=== PATIENT | female | born 1955 | race Two or more races ===

== ENCOUNTER 2022-10-28 16:05 | Inpatient (IN) | payer MEDICARE, OTHER ==
[~2022-10-28] VITALS: Ht 157.5 cm; Wt 58.1 kg
--- NOTE | 2022-10-28 16:10 | NUR ---
BIB FAMILY PT HAS BEEN SCARED, ANXIOUS, AND TRYING TO RUN AWAY STATING SHEWANTS TO AND RUN IN FRONT OF THE CAR X5DAYS, HX OF BIPOLAR
--- NOTE | 2022-10-28 16:57 | NUR ---
Covid 19 swab collected and sent to lab.
--- NOTE | 2022-10-28 16:58 | NUR ---
Unable to provide urine sample at the moment.
[2022-10-28 17:21] LABS: BASOPHILS # (AUTO) 0.1 K/uL (0.0-0.2); BASOPHILS % (AUTO) 0.5 % (0.0-2.0); EOSINOPHILS % (AUTO) 0.6 % (0.0-6.0); HEMATOCRIT 28 % (33-45); LYMPHOCYTES # (AUTO) 1.9 K/uL (0.8-4.8); LYMPHOCYTES % (AUTO) 16.2 % (20.0-44.0); MEAN CORPUSCULAR HGB CONC 29 g/dl (31.0-36.0); MEAN CORPUSCULAR VOLUME 65 fL (82-100); MONOCYTES # (AUTO) 0.9 K/uL (0.1-1.30); MONOCYTES % (AUTO) 7.3 % (2.0-12.0); NEUTROPHILS # (AUTO) 8.9 K/uL (1.8-8.9); NEUTROPHILS % (AUTO) 75.4 % (43.0-81.0); PLATELET COUNT (AUTO) 685 K/uL (150-450); RED BLOOD CELL COUNT(AUTO) 4.27 MIL/uL (4.0-5.2); WHITE BLOOD COUNT (AUTO) 11.9 K/uL (4.3-11.0)
--- NOTE | 2022-10-28 17:23 | NUR ---
Urine sample collected and sent to lab.
[2022-10-28 17:36] LABS: ALANINE AMINOTRANSFERASE 19 U/L (12-78); ALKALINE PHOSPHATASE 93 U/L (46-116); ASPARTATE AMINOTRANSFERASE 13 U/L (15-37); BILIRUBIN,DIRECT 0.1 mg/dL (0.0-0.2); BILIRUBIN,TOTAL 0.3 mg/dL (0.2-1.0); CALCIUM, SERUM 10.7 mg/dL (8.5-10.1); CARBON DIOXIDE 24 mmol/L (21-32); CHLORIDE 104 mmol/L (98-107); CREATININE 0.7 mg/dL (0.6-1.3); GLUCOSE 115 mg/dL (74-106); POTASSIUM 3.9 mmol/L (3.5-5.1); SODIUM SERUM 136 mmol/L (136-145); TOTAL PROTEIN, SERUM 7.8 g/dL (6.4-8.2); UREA NITROGEN, BLOOD 19 mg/dL (7-18)
[2022-10-28 17:42] LABS: ACETAMINOPHEN < 10 ug/ml (10-30); ALCOHOL, BLOOD < 3 mg/dL (0-0)
[2022-10-28 18:05] LABS: BILIRUBIN,URINE NEGATIVE (NEGATIVE); COLOR,URINE YELLOW (YELLOW); LEUKOCYTE ESTERASE ,URINE 3+ (NEGATIVE); NITRITE, URINE NEGATIVE (NEGATIVE); PROTEIN,URINE NEGATIVE (NEGATIVE); UGLUCOSE NEGATIVE (NEGATIVE); UROBILINOGEN,URINE 0.2 EU/dL (0.2)
--- NOTE | 2022-10-28 18:32 | NUR ---
ELMIRA LEONE CALLED FOR PSYCH EVAL. ETA [id number].
[2022-10-28 20:30] LABS: BACTERIA,URINE Few /HPF (None Seen); SQUAMOUS EPITHELIAL CELL,UR Moderate /HPF (None Seen); WBC,URINE 21-50 /HPF (0-3)
[2022-10-28] MEDS ORDERED: DEXTROSE 50%-WATER 50 ML DISP.SYRIN IV PRN (20:30)
--- NOTE | 2022-10-28 20:56 | NUR ---
REPORT GIVEN TO VERA LEONE FOR MARY ELLEN
[2022-10-28 21:05] VITALS: BP 156/82
--- NOTE | 2022-10-28 21:05 | NUR ---
BUSINESS MACHINES TEACHER NOTE: ADMITTED A 67-Y/O, FEMALE, FROM [facility]-, INITIALLY PT CAME FROM HOME. ADMITTED ON A 5150 FOR DTS/GD. PER HOLD, PATIENT ADMITTED DUE TO NOT SLEEPING AND TRY TO RUN AWAY FROM HOME WITH INTENTION TO HIT BY CAR AND VERBALIZING TO HER THAT SHE WANT TO , FEELING ANXIOUS, RESTLESS, HAS SHORT ATTENTION SPAN AND HAS PERIOD OF CONFUSION. UPON FACE TO FACE EVALUATION, PATIENT IS ALERT AND ORIENTED X3-4, APPEARS TO BE DEPRESSED, GUARDED, FLAT AFFECT, COOPERATIVE TO CARE. PATIENT DENIES SI/HI/AVH AT THIS TIME. SKIN ASSESSMENT DONE. ALL BELONGINGS WERE CHECKED FOR CONTRABAND AND WAS KEPT IN PT'S ROOM LOCKER. PT WAS ADVISED OF HER HOLD. PATIENT'S RIGHTS WERE DISCUSSED AND BOOKLET WAS GIVEN. CONTACTED DR. CARY AND HOSPITALIST SELENA HOBBS AND INFORMED THEM OF THE ADMISSION. BED IN LOW AND LOCKED POSITION. SAFETY PRECAUTIONS MAINTAINED. WILL CONTINUE TO MONITOR Q15 MINS FOR MOOD, SAFETY AND BEHAVIOR. PATIENT'S SON JEAN-PAUL NOTIFIED OF PT'S ADMISSION AND WAS APPRECIATIVE OF THE CALL.
[2022-10-28] MEDS ORDERED: OXYB5TAB16 PO (21:11)
[2022-10-28] MEDS ORDERED: GLIM1TAB18 PO (21:11)
[2022-10-28] MEDS ORDERED: ASPI-1169 PO (21:11)
[2022-10-28] MEDS ORDERED: PANT40TA2 PO (21:11)
[2022-10-28] MEDS ORDERED: LITH300T3 PO (21:11)
[2022-10-28] MEDS ORDERED: ATOR80TA PO (21:11)
[2022-10-28] MEDS ORDERED: AMLO-212 PO (21:11)
[2022-10-28] MEDS ORDERED: SITA100T PO (21:11)
[2022-10-28] MEDS: BLOOD SUGAR DIAGNOSTIC 1 EACH STRIP IN SCH (21:58)
[2022-10-28] MEDS ORDERED: TEMAZEPAM 7.5 MG CAPSULE PO PRN (22:00)
[2022-10-28] MEDS ORDERED: BLOOD SUGAR DIAGNOSTIC 1 EACH STRIP IN ONE (22:00)
[2022-10-28] MEDS ORDERED: MAG HYDROX/AL HYDROX/SIMETH 30 ML UDC PO PRN (22:00)
[2022-10-28] MEDS: INSULIN REGULAR, HUMAN 100 UNIT/ML 3 ML VIAL SQ PRN (22:34)
[2022-10-28 22:52] LABS: EOSINOPHILS % (MANUAL) 1 % (0-4); LYMPHOCYTES % (MANUAL) 26 % (16-48); MONOCYTES % (MANUAL) 4 % (0-11.0); NEUTROPHILS % (MANUAL) 69 (42-76)
[2022-10-29] MEDS: clonazePAM 0.5 MG TABLET PO PRN ×2 (01:15→12:34)
[2022-10-29 07:52] LABS: CREATININE 0.7 mg/dL (0.6-1.3)
[2022-10-29 08:00] VITALS: BP 163/82
[2022-10-29] MEDS: INSULIN REGULAR, HUMAN 100 UNIT/ML 3 ML VIAL SQ PRN ×4 (08:03→22:39)
[2022-10-29] MEDS: BLOOD SUGAR DIAGNOSTIC 1 EACH STRIP IN SCH ×4 (08:08→22:34)
[2022-10-29] MEDS: CEPHALEXIN MONOHYDRATE 500 MG CAPSULE PO SCH ×2 (08:27→16:30)
--- NOTE | 2022-10-29 10:02 | NUR ---
DOT Initial Discharge Note: Patient currently resides at home with located at [address] [place] [address]; ([phone]). DOT will contact pt's son Luke ([phone]) to gather collateral and discuss treatment/discharge plan. DOT will work with the MD, family, and treatment team to help coordinate appropriate discharge.
--- NOTE | 2022-10-29 10:03 | NUR ---
Treatment Plan: Pt refused to sign treatment plan and appeared suspicious.
--- NOTE | 2022-10-29 10:03 | NUR ---
DOT Clinical Note: Pt placed on a 5150 hold for danger to self. Pt was experiencing suicidal thoughts at home and has not been sleeping properly. Patient currently resides at home with located at [address] [place] [address]; ([phone]). DOT will contact pt's son Luke ([phone]) to gather collateral and discuss treatment/discharge plan.
[2022-10-29] MEDS: PANTOPRAZOLE 40 MG TABLET.DR PO SCH (10:21)
[2022-10-29] MEDS: GLIMEPIRIDE 1 MG TABLET PO SCH (10:21)
[2022-10-29] MEDS: ASPIRIN 81 MG TAB.CHEW PO SCH (10:21)
[2022-10-29] MEDS: AMLODIPINE BESYLATE 5 MG TABLET PO SCH (10:22)
[2022-10-29] MEDS: OXYBUTYNIN CHLORIDE 5 MG TABLET PO SCH (10:22)
--- NOTE | 2022-10-29 11:05 | NUR ---
DOT Family Contact: DOT contacted pt's son Luke ([phone]) to gather collateral and discuss treatment/discharge plan. Son shared that pt lives at home with her . She expressed that he would want pt back home when she is stable. Son stated that pt's mental status starting back in the . He expressed that pt was recently at [facility] and has had multiple psych admissions at [facility] and [facility]. He shared that recently pt was self-medicating her arthritis medication. 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 He shared that pt was manic at home and was aggressive with and so her psychiatrist adjusted the Cherry and decreased it. He shared that pt is scared to stay home alone.
[2022-10-29] MEDS: LITHIUM CARBONATE (300 MG CAP) 300 MG CAPSULE PO SCH ×2 (13:27→22:27)
[2022-10-29] MEDS: OLANZAPINE 5 MG TABLET PO SCH (13:27)
[2022-10-29 16:00] VITALS: BP 143/80
[2022-10-29 21:05] VITALS: BP 108/74
[2022-10-29] MEDS: OLANZAPINE 10 MG TABLET PO SCH (22:27)
[2022-10-29] MEDS: TRAZODONE 50 MG TABLET PO SCH (22:27)
[2022-10-29] MEDS: ATORVASTATIN 40 MG TABLET PO SCH (22:27)
[2022-10-30] MEDS: BLOOD SUGAR DIAGNOSTIC 1 EACH STRIP IN SCH ×4 (07:30→22:15)
[2022-10-30 08:00] VITALS: BP 130/59
[2022-10-30] MEDS: LINAGLIPTIN 5 MG TABLET PO SCH (09:00)
[2022-10-30] MEDS: CEPHALEXIN MONOHYDRATE 500 MG CAPSULE PO SCH ×2 (09:51→17:30)
[2022-10-30] MEDS: GLIMEPIRIDE 1 MG TABLET PO SCH (09:51)
[2022-10-30] MEDS: ASPIRIN 81 MG TAB.CHEW PO SCH (09:51)
[2022-10-30] MEDS: OLANZAPINE 5 MG TABLET PO SCH (09:51)
[2022-10-30] MEDS: AMLODIPINE BESYLATE 5 MG TABLET PO SCH (09:52)
[2022-10-30] MEDS: LITHIUM CARBONATE (300 MG CAP) 300 MG CAPSULE PO SCH ×2 (09:52→22:14)
[2022-10-30] MEDS: PANTOPRAZOLE 40 MG TABLET.DR PO SCH (09:52)
[2022-10-30] MEDS: OXYBUTYNIN CHLORIDE 5 MG TABLET PO SCH (09:55)
[2022-10-30] MEDS: clonazePAM 0.5 MG TABLET PO PRN (10:50)
[2022-10-30 16:00] VITALS: BP 131/59
--- NOTE | 2022-10-30 19:23 | NUR ---
REPORT GIVEN TO INCOMING NURSE. VITAL SIGNS STABLE. NO ACUTE DISTRESS NOTED . PATIENT IN STABLE CONDITION.
[2022-10-30 20:00] VITALS: BP 125/56
[2022-10-30] MEDS: OLANZAPINE 10 MG TABLET PO SCH (22:14)
[2022-10-30] MEDS: ATORVASTATIN 40 MG TABLET PO SCH (22:14)
[2022-10-30] MEDS: TRAZODONE 50 MG TABLET PO SCH (22:15)
[2022-10-30] MEDS: INSULIN REGULAR, HUMAN 100 UNIT/ML 3 ML VIAL SQ PRN (22:20)
[2022-10-31] MEDS: BLOOD SUGAR DIAGNOSTIC 1 EACH STRIP IN SCH ×4 (07:48→21:37)
[2022-10-31 08:00] VITALS: BP 149/72
[2022-10-31] MEDS: GLIMEPIRIDE 1 MG TABLET PO SCH (08:48)
[2022-10-31] MEDS: ASPIRIN 81 MG TAB.CHEW PO SCH (08:48)
[2022-10-31] MEDS: OLANZAPINE 5 MG TABLET PO SCH (08:48)
[2022-10-31] MEDS: LINAGLIPTIN 5 MG TABLET PO SCH (08:48)
[2022-10-31] MEDS: LITHIUM CARBONATE (300 MG CAP) 300 MG CAPSULE PO SCH ×2 (08:49→21:38)
[2022-10-31] MEDS: PANTOPRAZOLE 40 MG TABLET.DR PO SCH (08:49)
[2022-10-31] MEDS: AMLODIPINE BESYLATE 5 MG TABLET PO SCH (08:49)
[2022-10-31] MEDS: CEPHALEXIN MONOHYDRATE 500 MG CAPSULE PO SCH ×2 (08:49→17:09)
[2022-10-31] MEDS: OXYBUTYNIN CHLORIDE 5 MG TABLET PO SCH (08:49)
[2022-10-31] MEDS: INSULIN REGULAR, HUMAN 100 UNIT/ML 3 ML VIAL SQ PRN ×3 (09:31→22:05)
[2022-10-31] MEDS: ACETAMINOPHEN 325 MG TABLET PO PRN (10:34)
--- NOTE | 2022-10-31 10:37 | NUR ---
DOT Family Contact: DOT contacted pt's son Luke ([phone]) and requested update on pt's status. He would want to resume home health when pt is dc.
--- NOTE | 2022-10-31 10:39 | NUR ---
RN NOTE PATIENT COMPLAINED OF HEADACHE. ACETAMINOPHEN PRN GIVEN
[2022-10-31 16:00] VITALS: BP 130/58
--- NOTE | 2022-10-31 19:49 | NUR ---
AUTOMOTIVE SERVICE DIRECTOR Notes. Received patient in bed awake and verbally responsive. Patient appears depressed and guarded. Denies Si. Will continue to monitor.
[2022-10-31 20:43] VITALS: BP 144/64
[2022-10-31] MEDS: TRAZODONE 50 MG TABLET PO SCH (21:38)
[2022-10-31] MEDS: ATORVASTATIN 40 MG TABLET PO SCH (21:39)
[2022-10-31] MEDS: OLANZAPINE 10 MG TABLET PO SCH (21:39)
[2022-10-31] MEDS: MIRTAZAPINE 15 MG TABLET PO SCH (21:39)
[2022-11-01] MEDS: BLOOD SUGAR DIAGNOSTIC 1 EACH STRIP IN SCH ×4 (07:30→21:17)
[2022-11-01 08:00] VITALS: BP 157/78
[2022-11-01] MEDS: LINAGLIPTIN 5 MG TABLET PO SCH (08:34)
[2022-11-01] MEDS: ASPIRIN 81 MG TAB.CHEW PO SCH (08:34)
[2022-11-01] MEDS: CEPHALEXIN MONOHYDRATE 500 MG CAPSULE PO SCH ×2 (08:34→16:41)
[2022-11-01] MEDS: AMLODIPINE BESYLATE 5 MG TABLET PO SCH (08:35)
[2022-11-01] MEDS: PANTOPRAZOLE 40 MG TABLET.DR PO SCH (08:35)
[2022-11-01] MEDS: LITHIUM CARBONATE (300 MG CAP) 300 MG CAPSULE PO SCH ×2 (08:35→21:08)
[2022-11-01] MEDS: OXYBUTYNIN CHLORIDE 5 MG TABLET PO SCH (08:35)
[2022-11-01] MEDS: GLIMEPIRIDE 1 MG TABLET PO SCH (08:35)
[2022-11-01] MEDS: INSULIN REGULAR, HUMAN 100 UNIT/ML 3 ML VIAL SQ PRN ×3 (09:12→17:18)
[2022-11-01] MEDS: OLANZAPINE 5 MG TABLET PO SCH (09:39)
[2022-11-01 10:00] VITALS: BP 157/78
[2022-11-01 16:00] VITALS: BP 146/60
[2022-11-01] MEDS: clonazePAM 0.5 MG TABLET PO PRN (18:30)
[2022-11-01] MEDS: ACETAMINOPHEN 325 MG TABLET PO PRN (18:50)
--- NOTE | 2022-11-01 19:30 | NUR ---
RN OPENING NOTES RECEIVED PATIENT AWAKE IN BED SITTING. PATIENT IS A/O TIMES 3. NO PAIN NOTED. NO SOB NOTED. NO DISTRESS NOTED. PATIENT ABLE TO MAKE NEEDS KNOWN. COOPERATIVE. NO DISTRESS NOTED. NO BEHAVIORAL ISSUE NOTED.ALL SAFETY MEASURES IN PLACE. BED LOCKED IN THE LOWEST POSITION. SIDE RAILS UP TIMES 2. BED SIDE TABLE IN EASY REACH. WILL CONTINUE WITH PLAN OF CARE.
[2022-11-01 20:12] VITALS: BP 144/61
[2022-11-01] MEDS: OLANZAPINE 10 MG TABLET PO SCH (21:08)
[2022-11-01] MEDS: TRAZODONE 50 MG TABLET PO SCH (21:08)
[2022-11-01] MEDS: ATORVASTATIN 40 MG TABLET PO SCH (21:08)
[2022-11-01] MEDS: MIRTAZAPINE 15 MG TABLET PO SCH (21:09)
--- NOTE | 2022-11-01 22:00 | NUR ---
RN NOTES CHECKED BLOOD SUGAR FOR 2200. THE RESULT WAS 133. PATIENT REFUSED INSULIN.
[2022-11-01 22:23] VITALS: BP 144/61
[2022-11-02] MEDS: BLOOD SUGAR DIAGNOSTIC 1 EACH STRIP IN SCH ×4 (06:14→22:20)
--- NOTE | 2022-11-02 06:15 | NUR ---
RN NOTES BLOOD SUGAR CHECKED FOR MORNING. RESULT WAS 108. NO INSULIN COVERAGE.
--- NOTE | 2022-11-02 06:26 | NUR ---
RN CLOSING NOTES PATIENT RESTING IN BED. SLEPT AFTER 2200 TILL MORNING. PATIENT IS A/O TIMES 3. NO PAIN NOTED. NO SOB NOTED. NO DISTRESS NOTED. PATIENT ABLE TO MAKE NEEDS KNOWN. COOPERATIVE. NO DISTRESS NOTED. NO BEHAVIORAL ISSUE NOTED. ALL DUE MEDS GIVEN ORDERED.ALL SAFETY MEASURES IN PLACE. BED LOCKED IN THE LOWEST POSITION. SIDE RAILS UP TIMES 2. BED SIDE TABLE IN EASY REACH. WILL ENDORSE TO INCOMING SHIFT NURSE FOR MARY ELLEN.
[2022-11-02 08:00] VITALS: BP 158/86
[2022-11-02] MEDS: AMLODIPINE BESYLATE 5 MG TABLET PO SCH (08:34)
[2022-11-02] MEDS: ASPIRIN 81 MG TAB.CHEW PO SCH (08:34)
[2022-11-02] MEDS: CEPHALEXIN MONOHYDRATE 500 MG CAPSULE PO SCH ×2 (08:34→16:14)
[2022-11-02] MEDS: OLANZAPINE 5 MG TABLET PO SCH (08:35)
[2022-11-02] MEDS: LINAGLIPTIN 5 MG TABLET PO SCH (08:35)
[2022-11-02] MEDS: PANTOPRAZOLE 40 MG TABLET.DR PO SCH (08:35)
[2022-11-02] MEDS: OXYBUTYNIN CHLORIDE 5 MG TABLET PO SCH (08:35)
[2022-11-02] MEDS: GLIMEPIRIDE 1 MG TABLET PO SCH (08:35)
[2022-11-02 10:00] VITALS: BP 158/86
[2022-11-02] MEDS: LITHIUM CARBONATE (300 MG CAP) 300 MG CAPSULE PO SCH ×2 (10:21→22:17)
[2022-11-02] MEDS: ACETAMINOPHEN 325 MG TABLET PO PRN (14:08)
[2022-11-02] MEDS: clonazePAM 0.5 MG TABLET PO PRN (15:09)
[2022-11-02 16:00] VITALS: BP 154/80
[2022-11-02 19:57] VITALS: BP 126/60
[2022-11-02] MEDS: OLANZAPINE 10 MG TABLET PO SCH (22:17)
[2022-11-02] MEDS: TRAZODONE 50 MG TABLET PO SCH (22:17)
[2022-11-02] MEDS: ATORVASTATIN 40 MG TABLET PO SCH (22:17)
[2022-11-02] MEDS: MIRTAZAPINE 15 MG TABLET PO SCH (22:17)
[2022-11-02] MEDS: INSULIN REGULAR, HUMAN 100 UNIT/ML 3 ML VIAL SQ PRN (22:23)
[2022-11-02 22:32] VITALS: BP 126/60
[2022-11-03] MEDS: ACETAMINOPHEN 325 MG TABLET PO PRN (07:17)
[2022-11-03] MEDS: PANTOPRAZOLE 40 MG TABLET.DR PO SCH (07:17)
[2022-11-03] MEDS: BLOOD SUGAR DIAGNOSTIC 1 EACH STRIP IN SCH ×4 (07:32→21:33)
[2022-11-03 08:00] VITALS: BP 154/87
[2022-11-03] MEDS: CEPHALEXIN MONOHYDRATE 500 MG CAPSULE PO SCH ×2 (08:41→17:09)
[2022-11-03] MEDS: ASPIRIN 81 MG TAB.CHEW PO SCH (08:42)
[2022-11-03] MEDS: LINAGLIPTIN 5 MG TABLET PO SCH (08:42)
[2022-11-03] MEDS: OLANZAPINE 5 MG TABLET PO SCH (08:42)
[2022-11-03] MEDS: GLIMEPIRIDE 1 MG TABLET PO SCH (08:42)
[2022-11-03] MEDS: OXYBUTYNIN CHLORIDE 5 MG TABLET PO SCH (08:42)
[2022-11-03] MEDS: LITHIUM CARBONATE (300 MG CAP) 300 MG CAPSULE PO SCH ×2 (08:42→21:27)
[2022-11-03] MEDS: AMLODIPINE BESYLATE 5 MG TABLET PO SCH (09:01)
[2022-11-03 10:00] VITALS: BP 154/87
[2022-11-03] MEDS: clonazePAM 0.5 MG TABLET PO PRN ×2 (12:51→18:00)
--- NOTE | 2022-11-03 13:39 | NUR ---
RN-CO: Patient is calm and cooperative at this time, cooperative to care. She answers when asked otherwise she is quiet. She sometimes goes to group activities with minimal participation.
[2022-11-03] MEDS: MAGNESIUM HYDROXIDE 30 ML UDC PO PRN (13:44)
--- NOTE | 2022-11-03 14:00 | NUR ---
FINISH PRODUCTION MANAGER NOTE PATIENTS SON CALLED, CONCERNED HIS MOM IS NOT EATING AND STILL HUNGRY AFTER MEALS ADDITIONALLY THAT SHE IS LOSING WEIGHT. REASSURED THE SON THAT TARI GAMBINO IS EATING 100% OF HER MEALS AND THAT WE WOULD FOLLOW UP WITH THE FEEDLOT MANAGER TO ASSIST. CONTACT FEEDLOT MANAGER INFORMED HER ON THE ABOVE INFORMATION. ADVISED PATIENT ABLE TO EAT ALL HER FOOD BESIDES THE SALAD. FEEDLOT MANAGER STATED SHE WOULD ADJUST DIET TO PROVIDE MORE CALORIES. PATIENT WEIGHED IN BED, PATIENT CURRENTLY WEIGHING 145LB. NO FURTHER ACTION TAKEN AT THIS TIME.
--- NOTE | 2022-11-03 14:08 | NUR ---
DOT Family Contact: DOT received a call from pt's son Luke ([phone]) who was concerned of pt losing weight. DOT notified pt's assigned nurse and he called [employer] [address] Operator.
[2022-11-03 16:00] VITALS: BP 151/83
[2022-11-03] MEDS: GLUCERNA SHAKE 237 ML CAN PO SCH (17:23)
[2022-11-03 20:06] VITALS: BP 150/74
[2022-11-03] MEDS: OLANZAPINE 10 MG TABLET PO SCH (21:27)
[2022-11-03] MEDS: ATORVASTATIN 40 MG TABLET PO SCH (21:28)
[2022-11-03] MEDS: INSULIN REGULAR, HUMAN 100 UNIT/ML 3 ML VIAL SQ PRN (21:38)
--- NOTE | 2022-11-03 21:38 | NUR ---
patient's Addendum: 11/03/22 at 2139 by ANGELA HERNANDEZ RN PATIENT'S BLOOD GLUCOSE LEVEL IS 129 MG/DL AT THIS TIME. NO INSULIN COVERAGE ADMINISTERED PER SLIDING SCALE.
[2022-11-03] MEDS: TRAZODONE 50 MG TABLET PO SCH (22:00)
[2022-11-03 22:10] VITALS: BP 150/74
[2022-11-03] MEDS: MIRTAZAPINE 15 MG TABLET PO SCH (22:34)
--- NOTE | 2022-11-03 22:39 | NUR ---
RN NOTE PATIENT REFUSED TO TAKE TRAZODONE TONIGHT AND NOTED TO BE SLEEPY/DROWSY AT THIS TIME. WILL CONTINUE TO MONITOR FOR ANY CHANGE OF CONDITION.
[2022-11-04] MEDS: ACETAMINOPHEN 325 MG TABLET PO PRN ×2 (06:40→19:45)
--- NOTE | 2022-11-04 06:42 | NUR ---
RN NOTE: PAIN PATIENT C/O BILATERAL KNEE PAIN 11/28, REQUESTED TO TAKE PAIN MEDICINE. PRN TYLENOL 650 MG PO ADMINISTERED. WILL ENDORSE TO AM RN FOR CONTINUITY OF CARE.
[2022-11-04] MEDS: BLOOD SUGAR DIAGNOSTIC 1 EACH STRIP IN SCH ×4 (07:39→22:01)
[2022-11-04] MEDS: PANTOPRAZOLE 40 MG TABLET.DR PO SCH (07:45)
[2022-11-04 08:00] VITALS: BP 156/56
[2022-11-04] MEDS: GLUCERNA SHAKE 237 ML CAN PO SCH ×2 (08:19→17:05)
[2022-11-04] MEDS: LINAGLIPTIN 5 MG TABLET PO SCH (08:20)
[2022-11-04] MEDS: OLANZAPINE 5 MG TABLET PO SCH (08:20)
[2022-11-04] MEDS: MAGNESIUM HYDROXIDE 30 ML UDC PO PRN (08:20)
[2022-11-04] MEDS: ASPIRIN 81 MG TAB.CHEW PO SCH (08:20)
[2022-11-04] MEDS: OXYBUTYNIN CHLORIDE 5 MG TABLET PO SCH (08:20)
[2022-11-04] MEDS: AMLODIPINE BESYLATE 5 MG TABLET PO SCH (08:20)
[2022-11-04] MEDS: GLIMEPIRIDE 1 MG TABLET PO SCH (08:20)
[2022-11-04] MEDS: LITHIUM CARBONATE (300 MG CAP) 300 MG CAPSULE PO SCH ×2 (08:20→21:53)
[2022-11-04 10:00] VITALS: BP 156/76
--- NOTE | 2022-11-04 11:08 | NUR ---
Court Hearing: Patient's court hearing for 6030 was today and it was upheld for GD.
--- NOTE | 2022-11-04 11:08 | NUR ---
Court Notification: SW attempted to contact pt's son Luke ([phone]) but was unavailable at this time to notify of 0404 hearing.
--- NOTE | 2022-11-04 12:09 | NUR ---
RN-NOTES PATIENT COMPLAINED OF CONSTIPATIONS FOR 3 DAYS, DR. HINOJOSA MADE AWARE WITH T.O ORDER OF DULCOLAX 10MG SUP. DAILY PRN. NOTED AND CARRIED OUT.
[2022-11-04] MEDS: clonazePAM 0.5 MG TABLET PO PRN (14:11)
[2022-11-04 16:00] VITALS: BP 150/80
[2022-11-04] MEDS: INSULIN REGULAR, HUMAN 100 UNIT/ML 3 ML VIAL SQ PRN (17:20)
[2022-11-04] MEDS: BISACODYL SUPP (10 MG) 10 MG/SUPP.RECT SUPP.RECT RC PRN (17:44)
--- NOTE | 2022-11-04 18:24 | NUR ---
CRAFT RECRUITER CLOSING NOTES PATIENT AWAKE IN BED. PATIENT IS A/OX3. NO PAIN NOTED.NO SOB NOTED. NO DISTRESS NOTED. PATIENT ABLE TO MAKE NEEDS KNOWN. ALL DUE MEDS GIVEN ORDERED.NO BEHAVIORAL ISSUE NOTED DURING SHIFT . MEDICATION COMPLIANT. PATIENT DID ADVISED WHEN ANXIETY WAS BECOMING TOO MUCH, PRN CLONAZEPAM 0.5MG WAS GIVEN AT 1411, PATIENT STATED THIS HELPED AND STAYED IN ACTIVITY ROOM. PATIENT DID REFUSE 0730 & 1200 INSULIN. PATIENT GIVEN DULCOLAX 10MG SUP. FOR CONSTIPATION. ALL SAFETY MEASURES IN PLACE. BED LOCKED IN THE LOWEST POSITION. SIDE RAILS UP TIMES 2. BED SIDE TABLE CLOSE TO THE PATIENT. WILL ENDORSE TO DIRECTOR OF BRAND MARKETING NURSE
[2022-11-04 19:42] VITALS: BP 149/64
--- NOTE | 2022-11-04 19:49 | NUR ---
RN NOTE: PAIN PATIENT C/O BILATERAL KNEE PAIN 11/28, REQUESTED TO TAKE PAIN MEDICINE. PRN TYLENOL 650 MG PO ADMINISTERED. WILL CONTINUE TO MONITOR FOR ANY CHANGE OF CONDITION.
[2022-11-04 19:56] VITALS: BP 149/64
[2022-11-04] MEDS: OLANZAPINE 10 MG TABLET PO SCH (21:53)
[2022-11-04] MEDS: ATORVASTATIN 40 MG TABLET PO SCH (21:53)
[2022-11-04] MEDS: TRAZODONE 50 MG TABLET PO SCH (22:08)
[2022-11-04] MEDS: MIRTAZAPINE 15 MG TABLET PO SCH (22:08)
--- NOTE | 2022-11-04 22:10 | NUR ---
RN NOTE PATIENT'S BLOOD GLUCOSE LEVEL IS 153 MG/DL, PATIENT REFUSED SSI X 3 DESPITE OF RISKS AND BENEFITS EXPLANATIONS. PATIENT ALSO REFUSED SNACK AT THIS TIME. WILL CONTINUE TO MONITOR FOR ANY CHANGE OF CONDITION.
--- NOTE | 2022-11-04 22:13 | NUR ---
PATIENT C/O CONSTIPATION, MILK OF MAGNESIA AND DULCOLAX SUPPOSITORY WAS GIVEN DURING DAY TIME, PER PATIENT NO BM YET. OFFERED PRUNE JUICE OR MILK OF MAGNESIA, PATIENT REFUSED X 3 AND WANTED TO SLEEP AT THIS TIME. WILL OFFER MILK OF MAGNESIA AGAIN ONCE PATIENT IS AWAKE.
[2022-11-04 22:20] VITALS: BP 149/64
[2022-11-05] MEDS: MAGNESIUM HYDROXIDE 30 ML UDC PO PRN ×2 (03:45→15:08)
--- NOTE | 2022-11-05 03:47 | NUR ---
RN NOTE: CONSTIPATION PATIENT USED THE RESTROOM, VERBALIZED OF PASSING GAS BUT NO BM YET. PATIENT DENIED ABDOMINAL PAIN AND DISCOMFORT AT THIS TIME. PER PATIENT REQUEST MILK OF MAGNESIA GIVEN ORDERED. WILL CONTINUE TO MONITOR.
[2022-11-05] MEDS: ACETAMINOPHEN 325 MG TABLET PO PRN ×2 (03:53→19:52)
--- NOTE | 2022-11-05 03:54 | NUR ---
RN NOTE: PAIN PATIENT C/O BILATERAL LEG PAIN 11/28, REQUESTED TO TAKE PAIN MEDICINE. PRN TYLENOL 650 MG PO ADMINISTERED. WILL CONTINUE TO MONITOR FOR ANY CHANGE OF CONDITION.
[2022-11-05 08:00] VITALS: BP 132/87
[2022-11-05] MEDS: GLIMEPIRIDE 1 MG TABLET PO SCH (08:27)
[2022-11-05] MEDS: BLOOD SUGAR DIAGNOSTIC 1 EACH STRIP IN SCH ×4 (08:27→22:16)
[2022-11-05] MEDS: OLANZAPINE 5 MG TABLET PO SCH (08:27)
[2022-11-05] MEDS: LITHIUM CARBONATE (300 MG CAP) 300 MG CAPSULE PO SCH ×2 (08:28→21:52)
[2022-11-05] MEDS: OXYBUTYNIN CHLORIDE 5 MG TABLET PO SCH (08:28)
[2022-11-05] MEDS: ASPIRIN 81 MG TAB.CHEW PO SCH (08:28)
[2022-11-05] MEDS: AMLODIPINE BESYLATE 5 MG TABLET PO SCH (08:28)
[2022-11-05] MEDS: PANTOPRAZOLE 40 MG TABLET.DR PO SCH (08:28)
[2022-11-05] MEDS: LINAGLIPTIN 5 MG TABLET PO SCH (08:28)
[2022-11-05] MEDS: GLUCERNA SHAKE 237 ML CAN PO SCH ×2 (08:29→17:15)
[2022-11-05 10:00] VITALS: BP 132/87
[2022-11-05] MEDS: INSULIN REGULAR, HUMAN 100 UNIT/ML 3 ML VIAL SQ PRN ×2 (13:10→18:42)
[2022-11-05 16:00] VITALS: BP 155/77
[2022-11-05 18:05] LABS: CALCIUM, SERUM 10.2 mg/dL (8.5-10.1); CREATININE 0.8 mg/dL (0.6-1.3)
[2022-11-05 19:49] VITALS: BP 129/61
[2022-11-05] MEDS: ATORVASTATIN 40 MG TABLET PO SCH (21:51)
[2022-11-05] MEDS: OLANZAPINE 10 MG TABLET PO SCH (21:56)
--- NOTE | 2022-11-05 22:13 | NUR ---
RN NOTE PATIENT'S BLOOD GLUCOSE LEVEL IS 158 MG/DL, PATIENT REFUSED SSI X 3 DESPITE OF RISKS AND BENEFITS EXPLANATIONS. OFFERED SNACK TO THE PATIENT BUT REFUSED SNACK AT THIS TIME. WILL CONTINUE TO MONITOR FOR ANY CHANGE OF CONDITION.
[2022-11-05] MEDS: TRAZODONE 50 MG TABLET PO SCH (22:16)
[2022-11-05] MEDS: MIRTAZAPINE 15 MG TABLET PO SCH (22:22)
[2022-11-06 08:00] VITALS: BP 150/93
[2022-11-06] MEDS: OLANZAPINE 5 MG TABLET PO SCH (08:03)
[2022-11-06] MEDS: PANTOPRAZOLE 40 MG TABLET.DR PO SCH (08:03)
[2022-11-06] MEDS: GLUCERNA SHAKE 237 ML CAN PO SCH ×2 (08:03→16:24)
[2022-11-06] MEDS: BLOOD SUGAR DIAGNOSTIC 1 EACH STRIP IN SCH ×4 (08:03→21:21)
[2022-11-06] MEDS: ASPIRIN 81 MG TAB.CHEW PO SCH (08:03)
[2022-11-06] MEDS: LINAGLIPTIN 5 MG TABLET PO SCH (08:03)
[2022-11-06] MEDS: OXYBUTYNIN CHLORIDE 5 MG TABLET PO SCH (08:04)
[2022-11-06] MEDS: AMLODIPINE BESYLATE 5 MG TABLET PO SCH (08:04)
[2022-11-06] MEDS: LITHIUM CARBONATE (300 MG CAP) 300 MG CAPSULE PO SCH ×2 (08:04→21:13)
[2022-11-06] MEDS: GLIMEPIRIDE 1 MG TABLET PO SCH (08:04)
[2022-11-06] MEDS: INSULIN REGULAR, HUMAN 100 UNIT/ML 3 ML VIAL SQ PRN ×3 (08:07→21:25)
--- NOTE | 2022-11-06 08:38 | NUR ---
RN-NOTES RECEIVED T.O ORDER FROM DR. RUFFIN OF COLACE 100MG P.O TID.NOTED AND CARRIED OUT.
[2022-11-06] MEDS: DOCUSATE SODIUM 100 MG CAPSULE PO SCH ×3 (09:36→16:24)
--- NOTE | 2022-11-06 12:00 | NUR ---
RN-NOTES PATIENT BS WAS 189 MG/DL, PATIENT REFUSED COVERAGE OF 3 UNITS OF REGULAR INSULIN. EXPLAINED RISK AND BENEFITS STILL REFUSED. OFFERED X3
[2022-11-06 16:00] VITALS: BP 151/75
--- NOTE | 2022-11-06 18:50 | NUR ---
RN-NOTES PATIENT IS VISIBLE IN THE UNIT A/OX2, CALM AND COOPERATIVE WITH STAFF AND CARE. COMPLIANT WITH MEDICATIONS. ATTENDED GROUPS, ABLE TO MAKE NEEDS KNOWN TO THE STAFF. AMBULATORY WITH WALKER .ALL NEEDS ATTENDED AND ANTICIPATED. WILL CONT. MONITORING FOR SAFETY AND BEHAVIOR.WILL ENDORSE TO INCOMING NURSE FOR THE CONTINUITY OF CARE.
--- NOTE | 2022-11-06 19:30 | NUR ---
GPS RN NOTE, RECEIVED PATIENT AWAKE AND IN BED, NO S/S OR COMPLAINTS OF PAIN AT THIS TIME. PATIENT IS DISPLAYING NO S/S OF APPARENT DISTRESS AT THIS TIME. PATIENT BREATHING IS UNLABORED WITH EQUAL RISE AND FALL OF THE CHEST. PATIENT IS ALERT AND ORIENTED X 3 ON ROOM AIR WITH A SPO2 95%. PATIENT IS COMPLIANT WITH MEDICATIONS, CALM, FORGETFUL AT TIMES, ANXIOUS, POLITE, AND COOPERATIVE. PATIENT DENIES SUICIDAL AND HOMICIDAL IDEATIONS AT THIS TIME. PATIENT ASSISTED WITH TURNING AND REPOSITIONING Q2HR AND PRN FOR COMFORT AND CIRCULATION. PATIENT HAS NO NEEDS AT THIS TIME. PATIENT EDUCATED ON THE USE OF THE CALL YOO. PATIENT BED SIDE RAILS UP X 2 FOR SAFETY. PATIENT BED IS LOCKED AND LOW. WILL CONTINUE TO MONITOR THIS PATIENT Q15 MINUTES WITH THE HELP OF STAFF TO MAINTAIN SAFETY.
[2022-11-06 20:00] VITALS: BP 140/51
[2022-11-06] MEDS: TRAZODONE 50 MG TABLET PO SCH (21:13)
[2022-11-06] MEDS: MIRTAZAPINE 15 MG TABLET PO SCH (21:13)
[2022-11-06] MEDS: ATORVASTATIN 40 MG TABLET PO SCH (21:13)
[2022-11-06] MEDS: OLANZAPINE 10 MG TABLET PO SCH (21:13)
--- NOTE | 2022-11-06 21:21 | NUR ---
GPS RN NOTE, PERFORMED ACCU CHECK ON PATIENT WITH A BLOOD SUGAR RESULT OF 209. GAVE 4 UNITS OF REGULAR INSULIN PER SLIDING SCALE. WILL OFFER SNACK AND I WILL CONTINUE TO MONITOR THIS PATIENT WITH THE HELP OF STAFF.
[2022-11-07] MEDS: MAGNESIUM HYDROXIDE 30 ML UDC PO PRN (03:56)
--- NOTE | 2022-11-07 03:57 | NUR ---
GPS RN NOTE, PATIENT HAS A COMPLAINT OF CONSTIPATION AND IS REQUESTING MILK OF MAGNESIA AT THIS TIME. PATIENT VITAL SIGNS ARE STABLE. GAVE MILK OF MAGNESIA 1 UNITS DOSE 30ML PO Q12HR PRN ORDERED. WILL REASSESS PATIENT AND I WILL CONTINUE TO MONITOR THIS PATIENT WITH THE HELP OF STAFF.
[2022-11-07] MEDS: ACETAMINOPHEN 325 MG TABLET PO PRN (05:03)
--- NOTE | 2022-11-07 05:03 | NUR ---
GPS RN NOTE, PATIENT HAS A COMPLAINT OF A HEADACHE AT 2 OUT OF 10 ON THE PAIN SCALE AND IS REQUESTING TYLENOL AT THIS TIME. PATIENT VITAL SIGNS ARE STABLE. GAVE TYLENOL 650MG PO Q6HR PRN ORDERED. WILL REASSESS PAIN AND I WILL CONTINUE TO MONITOR THIS PATIENT WITH THE HELP OF STAFF.
[2022-11-07] MEDS: BLOOD SUGAR DIAGNOSTIC 1 EACH STRIP IN SCH ×4 (07:35→21:20)
[2022-11-07 08:00] VITALS: BP 128/58
[2022-11-07] MEDS: LITHIUM CARBONATE (300 MG CAP) 300 MG CAPSULE PO SCH ×2 (08:17→21:10)
[2022-11-07] MEDS: LINAGLIPTIN 5 MG TABLET PO SCH (08:17)
[2022-11-07] MEDS: GLIMEPIRIDE 1 MG TABLET PO SCH (08:17)
[2022-11-07] MEDS: ASPIRIN 81 MG TAB.CHEW PO SCH (08:17)
[2022-11-07] MEDS: GLUCERNA SHAKE 237 ML CAN PO SCH ×2 (08:17→17:09)
[2022-11-07] MEDS: DOCUSATE SODIUM 100 MG CAPSULE PO SCH ×3 (08:18→17:09)
[2022-11-07] MEDS: OLANZAPINE 5 MG TABLET PO SCH (08:18)
[2022-11-07] MEDS: PANTOPRAZOLE 40 MG TABLET.DR PO SCH (08:18)
[2022-11-07] MEDS: AMLODIPINE BESYLATE 5 MG TABLET PO SCH (08:18)
[2022-11-07] MEDS: INSULIN REGULAR, HUMAN 100 UNIT/ML 3 ML VIAL SQ PRN ×3 (08:28→21:21)
[2022-11-07] MEDS: OXYBUTYNIN CHLORIDE 5 MG TABLET PO SCH (08:32)
[2022-11-07] MEDS: clonazePAM 0.5 MG TABLET PO PRN (09:37)
--- NOTE | 2022-11-07 09:37 | NUR ---
NURSE NOTE: PT ANXIOUS AT THIS TIME. REQUESTED KLONOPIN AT THIS TIME. PT GONZALO WELL. WILL CONT TO MONITOR.
--- NOTE | 2022-11-07 10:37 | NUR ---
NURSE NOTE: PT CALM AT THIS TIME. PER PT, SHE FEELS BETTER NOW. KLONOPIN EFFECTIVE AT THIS TIME. WILL CONT TO MONITOR
[2022-11-07] MEDS: BISACODYL SUPP (10 MG) 10 MG/SUPP.RECT SUPP.RECT RC PRN (15:30)
--- NOTE | 2022-11-07 15:35 | NUR ---
NURSE NOTE: PT C/O FEELING OF CONSTIPATION AND UNABLE TO HAVE BM. ABD ROUNDED AND HARD TO TOUCH. PT REQUESTED DULCOLAX SUPP. ADM ORDERED. PT GONZALO WELL. WILL CONT TO MONITOR.
[2022-11-07 16:00] VITALS: BP 158/85
--- NOTE | 2022-11-07 16:20 | NUR ---
NURSE NOTE: PER PT SHE WAS ABLE TO HAVE A BM AND FEELS MUCH BETTER NOW. DULCOLAX EFFECTIVE AT THIS TIME.
--- NOTE | 2022-11-07 18:32 | NUR ---
NURSE NOTE: PT WITH BS AT 136 AT DINNER. ALREADY EATING DINNER. PT STATED THAT SHE DOES NOT WANT THE INSULIN AT THIS TIME. WILL ENFORCE TO ROOM SERVICE RUNNER.
--- NOTE | 2022-11-07 19:30 | NUR ---
GPS RN NOTE, RECEIVED PATIENT AWAKE AND IN BED, NO S/S OR COMPLAINTS OF PAIN AT THIS TIME. PATIENT IS DISPLAYING NO S/S OF APPARENT DISTRESS AT THIS TIME. PATIENT BREATHING IS UNLABORED WITH EQUAL RISE AND FALL OF THE CHEST. PATIENT IS ALERT AND ORIENTED X 3 ON ROOM AIR WITH A SPO2 95%. PATIENT IS COMPLIANT WITH MEDICATIONS, FORGETFUL AT TIMES, ANXIOUS, POLITE, AND COOPERATIVE. PATIENT DENIES SUICIDAL AND HOMICIDAL IDEATIONS AT THIS TIME. PATIENT ASSISTED WITH TURNING AND REPOSITIONING Q2HR AND PRN FOR COMFORT AND CIRCULATION. PATIENT HAS NO NEEDS AT THIS TIME. PATIENT EDUCATED ON THE USE OF THE CALL OYO. PATIENT BED SIDE RAILS UP X 2 FOR SAFETY. PATIENT BED IS LOCKED AND LOW. WILL CONTINUE TO MONITOR THIS PATIENT Q15 MINUTES WITH THE HELP OF STAFF TO MAINTAIN SAFETY.
[2022-11-07 20:00] VITALS: BP 139/53
[2022-11-07] MEDS: TRAZODONE 50 MG TABLET PO SCH (21:10)
[2022-11-07] MEDS: ATORVASTATIN 40 MG TABLET PO SCH (21:10)
[2022-11-07] MEDS: OLANZAPINE 10 MG TABLET PO SCH (21:10)
[2022-11-07] MEDS: MIRTAZAPINE 15 MG TABLET PO SCH (21:10)
[2022-11-08 08:00] VITALS: BP 154/67
[2022-11-08] MEDS: INSULIN REGULAR, HUMAN 100 UNIT/ML 3 ML VIAL SQ PRN ×4 (08:35→22:30)
[2022-11-08] MEDS: GLUCERNA SHAKE 237 ML CAN PO SCH ×2 (08:36→17:15)
[2022-11-08] MEDS: BLOOD SUGAR DIAGNOSTIC 1 EACH STRIP IN SCH ×4 (08:36→22:27)
[2022-11-08] MEDS: GLIMEPIRIDE 1 MG TABLET PO SCH (08:46)
[2022-11-08] MEDS: DOCUSATE SODIUM 100 MG CAPSULE PO SCH ×3 (08:46→16:55)
[2022-11-08] MEDS: AMLODIPINE BESYLATE 5 MG TABLET PO SCH (08:46)
[2022-11-08] MEDS: ASPIRIN 81 MG TAB.CHEW PO SCH (08:46)
[2022-11-08] MEDS: OXYBUTYNIN CHLORIDE 5 MG TABLET PO SCH (08:46)
[2022-11-08] MEDS: LITHIUM CARBONATE (300 MG CAP) 300 MG CAPSULE PO SCH ×2 (08:47→21:55)
[2022-11-08] MEDS: PANTOPRAZOLE 40 MG TABLET.DR PO SCH (08:47)
[2022-11-08] MEDS: OLANZAPINE 5 MG TABLET PO SCH (08:47)
[2022-11-08] MEDS: LINAGLIPTIN 5 MG TABLET PO SCH (08:47)
[2022-11-08 16:00] VITALS: BP 141/69
[2022-11-08 20:06] VITALS: BP 125/69
[2022-11-08] MEDS: TRAZODONE 50 MG TABLET PO SCH (21:55)
[2022-11-08] MEDS: ATORVASTATIN 40 MG TABLET PO SCH (21:56)
[2022-11-08] MEDS: OLANZAPINE 10 MG TABLET PO SCH (21:56)
[2022-11-08] MEDS: MIRTAZAPINE 15 MG TABLET PO SCH (21:56)
[2022-11-09 08:00] VITALS: BP 147/63
[2022-11-09] MEDS: BLOOD SUGAR DIAGNOSTIC 1 EACH STRIP IN SCH ×4 (08:09→21:23)
[2022-11-09] MEDS: GLUCERNA SHAKE 237 ML CAN PO SCH ×2 (08:09→17:14)
[2022-11-09] MEDS: GLIMEPIRIDE 1 MG TABLET PO SCH (08:37)
[2022-11-09] MEDS: LINAGLIPTIN 5 MG TABLET PO SCH (08:37)
[2022-11-09] MEDS: ASPIRIN 81 MG TAB.CHEW PO SCH (08:37)
[2022-11-09] MEDS: OLANZAPINE 5 MG TABLET PO SCH (08:37)
[2022-11-09] MEDS: DOCUSATE SODIUM 100 MG CAPSULE PO SCH ×3 (08:38→17:15)
[2022-11-09] MEDS: PANTOPRAZOLE 40 MG TABLET.DR PO SCH (08:38)
[2022-11-09] MEDS: LITHIUM CARBONATE (300 MG CAP) 300 MG CAPSULE PO SCH ×2 (08:38→21:31)
[2022-11-09] MEDS: AMLODIPINE BESYLATE 5 MG TABLET PO SCH (08:38)
[2022-11-09] MEDS: OXYBUTYNIN CHLORIDE 5 MG TABLET PO SCH (08:38)
[2022-11-09] MEDS: INSULIN REGULAR, HUMAN 100 UNIT/ML 3 ML VIAL SQ PRN ×2 (13:38→21:23)
[2022-11-09 16:00] VITALS: BP 158/80
[2022-11-09] MEDS: clonazePAM 0.5 MG TABLET PO PRN (17:14)
[2022-11-09] MEDS: MAGNESIUM HYDROXIDE 30 ML UDC PO PRN (17:50)
--- NOTE | 2022-11-09 20:00 | NUR ---
RN opening notes Pt is laying in bed comfortably. Pt is alert and orientedX 2-3,calm, with episode of confusion. On room air. no SOB. No S/s of distress noted. Vs is stable. Reality orientation provided. snack is provided. Safety precaution is maintained all the time. Will continue to monitor safety and behavior Q 15 mins checks.
[2022-11-09 20:27] VITALS: BP 144/66
--- NOTE | 2022-11-09 21:24 | NUR ---
RN notes Pt's blood sugar HS 143. Pt refuses coverage. Explained risks and benefits. Pt keep refusing. will continue to monitor.
[2022-11-09] MEDS: OLANZAPINE 10 MG TABLET PO SCH (21:30)
[2022-11-09] MEDS: ATORVASTATIN 40 MG TABLET PO SCH (21:31)
[2022-11-10] MEDS: BISACODYL SUPP (10 MG) 10 MG/SUPP.RECT SUPP.RECT RC PRN (06:27)
--- NOTE | 2022-11-10 06:28 | NUR ---
RN notes Pt is complaining of having constipation. Pt informed Pt hasn't had bowel movement since 2 days ago. administered dulcolax supp as ordered for BM. Will continue to monitor.
[2022-11-10] MEDS: PANTOPRAZOLE 40 MG TABLET.DR PO SCH (06:37)
[2022-11-10] MEDS: BLOOD SUGAR DIAGNOSTIC 1 EACH STRIP IN SCH ×4 (06:52→21:13)
[2022-11-10] MEDS: INSULIN REGULAR, HUMAN 100 UNIT/ML 3 ML VIAL SQ PRN ×4 (06:52→22:31)
[2022-11-10 08:00] VITALS: BP 143/93
[2022-11-10] MEDS: LITHIUM CARBONATE (300 MG CAP) 300 MG CAPSULE PO SCH ×2 (08:08→21:14)
[2022-11-10] MEDS: GLUCERNA SHAKE 237 ML CAN PO SCH ×2 (08:08→17:38)
[2022-11-10] MEDS: OXYBUTYNIN CHLORIDE 5 MG TABLET PO SCH (08:08)
[2022-11-10] MEDS: OLANZAPINE 5 MG TABLET PO SCH (08:09)
[2022-11-10] MEDS: DOCUSATE SODIUM 100 MG CAPSULE PO SCH ×3 (08:09→17:38)
[2022-11-10] MEDS: GLIMEPIRIDE 1 MG TABLET PO SCH (08:09)
[2022-11-10] MEDS: AMLODIPINE BESYLATE 5 MG TABLET PO SCH (08:10)
[2022-11-10] MEDS: ASPIRIN 81 MG TAB.CHEW PO SCH (08:11)
[2022-11-10] MEDS: LINAGLIPTIN 5 MG TABLET PO SCH (08:11)
[2022-11-10] MEDS ORDERED: AMLODIPINE BESYLATE 5 MG TABLET PO SCH (08:30)
[2022-11-10] MEDS: clonazePAM 0.5 MG TABLET PO PRN (09:04)
--- NOTE | 2022-11-10 09:04 | NUR ---
NURSE NOTE: PT FEELING ANXIOUS AT THIS TIME. REQUESTED KLONOPIN. KLONOPIN ADMINISTERED ORDERED. PT GONZALO WELL. WILL CONT TO MONITOR.
--- NOTE | 2022-11-10 10:04 | NUR ---
NURSE NOTE. PT CALM AT THIS TIME. STATED THAT SHE FELLS BETTER. KLONOPIN EFFECTIVE AT THIS TIME. WILL CONT TO MONITOR.
[2022-11-10 16:00] VITALS: BP 152/78
[2022-11-10] MEDS ORDERED: OLANZAPINE 2.5 MG TABLET PO SCH (17:00)
[2022-11-10 20:27] VITALS: BP 138/65
[2022-11-10] MEDS: OLANZAPINE 10 MG TABLET PO SCH (21:13)
[2022-11-10] MEDS: ATORVASTATIN 40 MG TABLET PO SCH (21:13)
[2022-11-11] MEDS: BLOOD SUGAR DIAGNOSTIC 1 EACH STRIP IN SCH ×4 (07:54→21:30)
[2022-11-11 08:00] VITALS: BP 153/70
[2022-11-11] MEDS: GLUCERNA SHAKE 237 ML CAN PO SCH ×2 (08:13→16:21)
[2022-11-11] MEDS: PANTOPRAZOLE 40 MG TABLET.DR PO SCH (08:14)
[2022-11-11] MEDS: OLANZAPINE 5 MG TABLET PO SCH (08:14)
[2022-11-11] MEDS: ASPIRIN 81 MG TAB.CHEW PO SCH (08:14)
[2022-11-11] MEDS: GLIMEPIRIDE 1 MG TABLET PO SCH (08:15)
[2022-11-11] MEDS: AMLODIPINE BESYLATE 10 MG TABLET PO SCH (08:15)
[2022-11-11] MEDS: DOCUSATE SODIUM 100 MG CAPSULE PO SCH ×3 (08:15→16:21)
[2022-11-11] MEDS: OXYBUTYNIN CHLORIDE 5 MG TABLET PO SCH (08:15)
[2022-11-11] MEDS: LINAGLIPTIN 5 MG TABLET PO SCH (08:15)
[2022-11-11] MEDS: LITHIUM CARBONATE (300 MG CAP) 300 MG CAPSULE PO SCH ×2 (08:15→21:12)
[2022-11-11] MEDS: INSULIN REGULAR, HUMAN 100 UNIT/ML 3 ML VIAL SQ PRN ×4 (08:19→21:34)
--- NOTE | 2022-11-11 09:20 | NUR ---
DOT Coordination of Care: Pt will follow up with Psychiatrist, Dr. Villavicencio located [address] [place] [address] on November 20 at 2:30PM via telehealth. Scheduled by Mary Ellen airline lounge receptionist.
[2022-11-11 16:00] VITALS: BP 136/67
--- NOTE | 2022-11-11 18:06 | NUR ---
RN-NOTES PATIENT IS VISIBLE IN THE UNIT CALM AND COOPERATIVE WITH STAFF,COMPLIANT WITH MEDICATIONS. PATIENT IS HAPPY TO GO HOME TOMORROW, ABLE TO MAKE NEEDS KNOWN TO THE STAFF. ALL NEEDS ATTENDED AND ANTICIPATED. WILL CONT. MONITORING FOR SAFETY AND BEHAVIOR, WILL ENDORSE TO INCOMING NURSE FOR THE CONTINUITY OF CARE.
[2022-11-11] MEDS: ATORVASTATIN 40 MG TABLET PO SCH (21:12)
[2022-11-11 21:31] VITALS: BP 137/67
[2022-11-11] MEDS ORDERED: OLANZAPINE 10 MG TABLET PO SCH (22:00)
--- NOTE | 2022-11-12 07:57 | NUR ---
SW Discharge Note: Patient [place] [address] [place] [address]; ([phone]). Patients son Luke ([phone]) will pick remover pt at 7PM. Pt is happy to be going back home. Pt is alert and oriented x2. Pt denies suicidal or homicidal ideation. Pt denies visual/auditory hallucinations. Pt will follow up with Nurse Licensed Practical, Dr. North located at [address] [place] [address]; . Pt will follow up with Psychiatrist, Dr. Villavicencio located [address] [place] [address] on November 20 at 2:30PM via telehealth. Pt presents with euthymic mood and congruent affect.
[2022-11-12 08:00] VITALS: BP 149/93
[2022-11-12] MEDS: GLUCERNA SHAKE 237 ML CAN PO SCH ×2 (08:14→17:00)
[2022-11-12] MEDS: LINAGLIPTIN 5 MG TABLET PO SCH (08:14)
[2022-11-12] MEDS: GLIMEPIRIDE 1 MG TABLET PO SCH (08:14)
[2022-11-12] MEDS: PANTOPRAZOLE 40 MG TABLET.DR PO SCH (08:14)
[2022-11-12] MEDS: OLANZAPINE 5 MG TABLET PO SCH (08:14)
[2022-11-12] MEDS: DOCUSATE SODIUM 100 MG CAPSULE PO SCH ×3 (08:14→17:00)
[2022-11-12] MEDS: LITHIUM CARBONATE (300 MG CAP) 300 MG CAPSULE PO SCH (08:15)
[2022-11-12] MEDS: OXYBUTYNIN CHLORIDE 5 MG TABLET PO SCH (08:15)
[2022-11-12] MEDS: AMLODIPINE BESYLATE 10 MG TABLET PO SCH (08:15)
[2022-11-12] MEDS: ASPIRIN 81 MG TAB.CHEW PO SCH (08:15)
[2022-11-12] MEDS: BLOOD SUGAR DIAGNOSTIC 1 EACH STRIP IN SCH ×3 (08:15→17:00)
[2022-11-12] MEDS: INSULIN REGULAR, HUMAN 100 UNIT/ML 3 ML VIAL SQ PRN (08:34)
[2022-11-12] MEDS: BISACODYL SUPP (10 MG) 10 MG/SUPP.RECT SUPP.RECT RC PRN (08:34)
--- NOTE | 2022-11-12 08:34 | NUR ---
NURSE NOTE: PT C/O CONSTIPATION AT THIS TIME. REQUESTED SUPPOSITORY AT THIS TIME. DULCOLAX SUPP ADMINISTERED ORDERED. PT GONZALO WELL. WILL CONT TO MONITOR.
--- NOTE | 2022-11-12 09:34 | NUR ---
NURSE NOTE: DULCOLAX SUPP EFFECTIVE AT THIS TIME. PT STATED THAT SHE WAS ABLE TO HAVE A BM. FEELS BETTER. WILL CONT TO MONITOR.
[2022-11-12] MEDS: clonazePAM 0.5 MG TABLET PO PRN (13:47)
--- NOTE | 2022-11-12 13:47 | NUR ---
NURSE NOTE: PT FEELING ANXIOUS AT THIS TIME. REQUESTED ATIVAN AT THIS TIME. ATIVAN PO ADMINISTERED ORDERED. PT GONZALO WELL. WILL CONT TO MONITOR.
--- NOTE | 2022-11-12 14:47 | NUR ---
NURSE NOTE: PT STATED THAT SHE FEELS A LITTLE BIT BETTER, BUT STILL HAVING ANXIOUS THOUGHTS. INSTRUCTED PT TO DO DEEP BREATHING EXERCISES TO HELP HER RELAX.
[2022-11-12 16:00] VITALS: BP 135/89
--- NOTE | 2022-11-12 19:10 | NUR ---
NURSE NOTE:67 YEAR OLD FEMALE DEISCHARGED TO HOME IN STABLE [place]. COMPLIANT WITH MEDS, COOPERATIVE WITH TREATMENT PPLANS. PT DENIES SI/HI AND INSTRUCTED TO GO TO THE CLOSEST ER IF DEVELOPING SI/HI. BEHAVIOR IMPROVED, PSYCHIATRIC TX PLANS MET, MEDICAL TX PLANS DEFERRED FOR CONTINUAL MONITORING. DR CARY DISCONTINUED HOLD AND BOTH HE AND DR PIMENTEL DISCHARGED HOME. PT EDUCATED ABOUT AFTER CARE PLAN AND COPY PROVIDED. RETURNED PERSONAL BELONGINGS TO PT AND ID BAND REMOVED. PT TO F/U WITH DR PAYNE SOON POSSIBLE AND WITH PSYCH DR JACKSON ON NOVEMBER 20 VIA TELEHEALTH. PRESCRIPTION GIVEN TO BE FILLED SOON POSSIBLE. PT SIGNED DISCHARGE PAPERWORK. PT LEFT THE UNIT AT 1910 WITH SON VIA WHEELCHAIR.
== END 2022-11-12 19:10 | disposition home or self-care (01) | DRG 885 ==
LOC: ER 16:14 → GPS 20:03
PROVIDERS: ADMIT Psychiatry & Neurology Psychiatry; ATTEND Nurse Practitioner Acute Care
DX: F31.9 Bipolar disorder, unspecified (principal); N39.0 Urinary tract infection, site not specified; R45.851 Suicidal ideations; F29 Unspecified psychosis not due to a substance or known physiological condition; F41.9 Anxiety disorder, unspecified; E78.5 Hyperlipidemia, unspecified; G47.00 Insomnia, unspecified; E11.9 Type 2 diabetes mellitus without complications; I10 Essential (primary) hypertension; M51.17 Intervertebral disc disorders with radiculopathy, lumbosacral region; Z79.82 Long term (current) use of aspirin; Z79.84 Long term (current) use of oral hypoglycemic drugs; Z79.899 Other long term (current) drug therapy; Z73.6 Limitation of activities due to disability; B96.89 Other specified bacterial agents as the cause of diseases classified elsewhere; D50.9 Iron deficiency anemia, unspecified; E86.0 Dehydration; R79.89 Other specified abnormal findings of blood chemistry
CPT/HCPCS: 36415; 80048-TC; 80061-TC; 80076-TC; 81001; 82565-TC; 82962-TC; 85025-TC; 87081-TC; 87086-TC; C9803; G0480; J1815

== ENCOUNTER 2022-11-25 14:08 | Inpatient (IN) | payer MEDICARE, OTHER ==
[~2022-11-25] VITALS: Ht 157.5 cm; Wt 64.0 kg
[~2022-11-25 14:08] MED LIST: AMLO-212 PO; ASPI-1169 PO; ATOR80TA PO; GLIM1TAB18 PO; LITH300T3 PO; OXYB5TAB16 PO; PANT40TA2 PO; SITA100T PO
--- NOTE | 2022-11-25 14:30 | NUR ---
nolele [employer] from home, son called s/p patient tried to ingest a bottle tylenol states she wants to . on 515 hold for DTS
[2022-11-25 14:48] LABS: BASOPHILS % (AUTO) 0.4 % (0.0-2.0); EOSINOPHILS % (AUTO) 0.4 % (0.0-6.0); HEMATOCRIT 27 % (33-45); HEMOGLOBIN 7.7 g/dL (11.5-14.8); LYMPHOCYTES # (AUTO) 1.8 K/uL (0.8-4.8); LYMPHOCYTES % (AUTO) 14.7 % (20.0-44.0); MEAN CORPUSCULAR HGB CONC 29 g/dl (31.0-36.0); MEAN CORPUSCULAR VOLUME 63 fL (82-100); MONOCYTES # (AUTO) 0.8 K/uL (0.1-1.30); MONOCYTES % (AUTO) 6.8 % (2.0-12.0); NEUTROPHILS # (AUTO) 9.3 K/uL (1.8-8.9); NEUTROPHILS % (AUTO) 77.7 % (43.0-81.0); PLATELET COUNT (AUTO) 854 K/uL (150-450); RED BLOOD CELL COUNT(AUTO) 4.26 MIL/uL (4.0-5.2); WHITE BLOOD COUNT (AUTO) 11.9 K/uL (4.3-11.0)
--- NOTE | 2022-11-25 14:49 | NUR ---
urine sample obtained
[2022-11-25] MEDS ORDERED: OLAN20TA3 PO (14:54)
[2022-11-25] MEDS ORDERED: LITH300C2 PO (14:54)
[2022-11-25] MEDS ORDERED: LINA5TAB PO (14:54)
[2022-11-25] MEDS ORDERED: LORA-258 PO (14:55)
[2022-11-25 15:01] LABS: CALCIUM, SERUM 10.7 mg/dL (8.5-10.1); CARBON DIOXIDE 24 mmol/L (21-32); CHLORIDE 106 mmol/L (98-107); CREATININE 0.6 mg/dL (0.6-1.3); GLUCOSE 167 mg/dL (74-106); POTASSIUM 3.4 mmol/L (3.5-5.1); SODIUM SERUM 141 mmol/L (136-145); UREA NITROGEN, BLOOD 17 mg/dL (7-18)
[2022-11-25 15:07] LABS: ALANINE AMINOTRANSFERASE 19 U/L (12-78); ALBUMIN 4.2 g/dL (3.4-5.0); ALCOHOL, BLOOD < 3 mg/dL (0-0); ALKALINE PHOSPHATASE 107 U/L (46-116); ASPARTATE AMINOTRANSFERASE 14 U/L (15-37); BILIRUBIN,DIRECT 0.1 mg/dL (0.0-0.2); BILIRUBIN,TOTAL 0.2 mg/dL (0.2-1.0); TOTAL PROTEIN, SERUM 8.5 g/dL (6.4-8.2)
[2022-11-25 15:16] LABS: BILIRUBIN,URINE NEGATIVE (NEGATIVE); COLOR,URINE YELLOW (YELLOW); LEUKOCYTE ESTERASE ,URINE TRACE (NEGATIVE); NITRITE, URINE NEGATIVE (NEGATIVE); PH,URINE 6.5 (5.0-8.0); PROTEIN,URINE NEGATIVE (NEGATIVE); UGLUCOSE NEGATIVE (NEGATIVE); UROBILINOGEN,URINE 0.2 EU/dL (0.2)
[2022-11-25 15:49] LABS: ACETAMINOPHEN < 10 ug/ml (10-30)
[2022-11-25 16:21] LABS: BACTERIA,URINE Few /HPF (None Seen); RBC,URINE NONE SEEN /HPF (0-2); SQUAMOUS EPITHELIAL CELL,UR Few /HPF (None Seen)
[2022-11-25 16:33] LABS: LYMPHOCYTES % (MANUAL) 11 % (16-48); MONOCYTES % (MANUAL) 8 % (0-11.0); NEUTROPHILS % (MANUAL) 81 (42-76)
--- NOTE | 2022-11-25 16:51 | NUR ---
PLACED ON HOLD 1313.
--- NOTE | 2022-11-25 17:41 | NUR ---
REPORT GIVEN TO GPS RN
--- NOTE | 2022-11-25 18:00 | NUR ---
GPS ADMISSION RN NOTES ADMITTED A 67 Y/O FEMALE TO THE UNIT AT 1745 VIA GURNEY ACCOMPANIED BY E.R. STAFF, WITH DX OF PSYCHOSIS NOS. PATIENT IS ALERT AND ORIENTED X3, ABLE TO MAKE NEEDS KNOWN. PT IS MALAY SPEAKING BUT ALSO UNDERSTANDS CYPRIOT. PT'S SON IS AT BEDSIDE. PT ORIENTED TO STAFF AND UNIT. V/S TAKEN AND RECORDED. PT ON ROOM AIR, TOLERATING WELL WITH SPO2 AT 98%. NO SOB NOTED AT THIS TIME. NOT IN ANY SIGN OF RESPIRATORY DISTRESS. LUNG SOUNDS CLEAR BILATERALLY UPON AUSCULTATION. ABDOMEN SOFT AND NON-TENDER. PT DENIES PAIN OR DISCOMFORT AT THIS TIME. SKIN IS INTACT, DRY, AND WARM. PT HAS NO SKIN ISSUES NOTED UPON ASSESSMENT. PT DENIES SUICIDAL IDEATION AT THIS TIME. CONTRABAND AND SAFETY CHECKED DONE. SAFETY MEASURES INITIATED: BED IN LOWEST AND LOCKED POSITION, BED ALARM ON, SIDE RAILS UP X2, AND CALL LIGHT WITHIN REACH. WILL CONTINUE TO MONITOR PT.
[2022-11-25] MEDS ORDERED: MAG HYDROX/AL HYDROX/SIMETH 30 ML UDC PO PRN (18:30)
[2022-11-25] MEDS ORDERED: TEMAZEPAM 7.5 MG CAPSULE PO PRN (18:30)
[2022-11-25] MEDS ORDERED: BLOOD SUGAR DIAGNOSTIC 1 EACH STRIP IN ONE (18:30)
[2022-11-25] MEDS ORDERED: POTASSIUM CHLORIDE 10 MEQ TABLET.SA PO ONE (18:30)
[2022-11-25 18:32] VITALS: BP_SYST 123; BP_SYST 145; BP_DIAS 68; BP_DIAS 97
--- NOTE | 2022-11-25 18:50 | NUR ---
RN NOTE ACCUCHECKED DONE AND BS NOTED AT 268MG/DL. WILL ENDORSED TO INCOMING TRAFFIC DIVISION COMMANDING OFFICER NURSE TO FOLLOW UP WITH MD FOR ORDERS.
--- NOTE | 2022-11-25 19:30 | NUR ---
RN NOTES RECEIVED PATIENT AWAKE IN HER ROOM. PATIENT IS NEW ADMISSION. PATIENT IS A/O TIMES 2 TAMAZIGHT AND URDU SPEAKER. PATIENT ABLE TO MAKE NEEDS KNOWN. NO PAIN, NO SOB NO DISTRESS NOTED. PATIENT DENIES SI/HI AT THIS TIMES. PATIENT COOPERATIVE WITH FLAT FACE. INCONTINENT AND WEARING DIAPERS. ALL SAFETY MEASURES IN PLACE. BED LOCKED IN THE LOWEST POSITION, TABLE IN EASY REACH SIDE RAILS UP TIMES 2. WILL CONTINUE WITH PLAN OF CARE.
[2022-11-25] MEDS: NITROFURANTOIN/MONOHYDRATE MACROCRYSTALS 100 MG CAPSULE PO SCH (20:02)
[2022-11-25 20:20] VITALS: BP 147/80
[2022-11-25 20:33] VITALS: BP 147/80
[2022-11-25 20:49] VITALS: BP 147/80
[2022-11-25] MEDS ORDERED: BLOOD SUGAR DIAGNOSTIC 1 EACH STRIP IN SCH (22:00)
[2022-11-25] MEDS ORDERED: DEXTROSE 50%-WATER 50 ML DISP.SYRIN IV PRN (23:30)
[2022-11-25] MEDS: BLOOD SUGAR DIAGNOSTIC 1 EACH STRIP IN SCH (23:46)
[2022-11-25] MEDS: INSULIN REGULAR, HUMAN 100 UNIT/ML 3 ML VIAL SQ PRN (23:52)
[2022-11-26] MEDS: BLOOD SUGAR DIAGNOSTIC 1 EACH STRIP IN SCH ×4 (05:57→22:50)
--- NOTE | 2022-11-26 06:34 | NUR ---
RN NOTES CHECKED BLOOD SUGAR NOTED 138 FOR 0730. PATIENT REFUSED INSULIN .
--- NOTE | 2022-11-26 06:38 | NUR ---
RN CLOSING NOTES PATIENT AWAKE IN HER ROOM. PATIENT IS A/O TIMES 2 KAZAKH AND UGANDAN SPEAKER. PATIENT ABLE TO MAKE NEEDS KNOWN. NO PAIN, NO SOB NO DISTRESS NOTED. PATIENT DENIES SI/HI AT THIS TIMES. PATIENT COOPERATIVE WITH FLAT FACE. INCONTINENT AND WEARING DIAPERS. ALL SAFETY MEASURES IN PLACE. BED LOCKED IN THE LOWEST POSITION, TABLE IN EASY REACH SIDE RAILS UP TIMES 2. COMPLIANT WITH MEDICATIONS. WILL ENDORSE FOR MARY ELLEN.
[2022-11-26 07:09] LABS: ALBUMIN 3.7 g/dL (3.4-5.0); BILIRUBIN,TOTAL 0.3 mg/dL (0.2-1.0); CALCIUM, SERUM 10.3 mg/dL (8.5-10.1); CREATININE 0.6 mg/dL (0.6-1.3); POTASSIUM 3.7 mmol/L (3.5-5.1); TOTAL PROTEIN, SERUM 7.6 g/dL (6.4-8.2)
[2022-11-26] MEDS: PANTOPRAZOLE 40 MG TABLET.DR PO SCH (07:42)
[2022-11-26 08:00] VITALS: BP 157/86
[2022-11-26 08:14] LABS: IRON, SERUM 9 ug/dl (50-175); TOTAL IRON BINDING CAPACITY 446 ug/dl (250-450)
[2022-11-26] MEDS: OXYBUTYNIN CHLORIDE 5 MG TABLET PO SCH (08:24)
[2022-11-26] MEDS: LINAGLIPTIN 5 MG TABLET PO SCH (08:25)
[2022-11-26] MEDS: AMLODIPINE BESYLATE 5 MG TABLET PO SCH (08:25)
[2022-11-26] MEDS: ASPIRIN 81 MG TAB.CHEW PO SCH (08:26)
[2022-11-26 08:32] LABS: CHOLESTEROL 129 mg/dL (<200); FERRITIN 6 ng/mL (8-388); HDL CHOLESTEROL 52 mg/dL (40-60); LDL 63 mg/dL (0-99); TRIGLYCERIDES 106 mg/dL (30-150)
[2022-11-26] MEDS: NITROFURANTOIN/MONOHYDRATE MACROCRYSTALS 100 MG CAPSULE PO SCH ×2 (09:07→19:01)
--- NOTE | 2022-11-26 09:08 | NUR ---
RN NOTES RECEIVED PT ASLEEP IN BED, EASY TO AROUSE, ALL 4 BED WHEELS LOCKED AND BED LOW TO FLOOR, PATIENT IS A & O X 2 BENGALI AND TELUGU SPEAKER, PATIENT ABLE TO MAKE NEEDS KNOWN. NO PAIN, NO SOB AND NO DISTRESS NOTED. PATIENT DENIES SI/HI AT THIS TIMES, AM MEDICATIONS GIVEN WHOLE WITH BREAKFAST AND WATER, ALLOWED PT TO GIVE PO MEDS TO SELF USING HER RIGHT HAND WITH CUP TO MOUTH BUT PT WAS SHAKING A BIT AND HAND UNSTEADY PT SPILLED PILLS ONTO BED AND ONE HIT FLOOR - THE ABT MACROBID - THEREFORE ANOTHER ONE TAKEN FROM Kynded AT THIS TIME , PATIENT COOPERATIVE WITH FLAT FACE. INCONTINENT AND WEARING DIAPERS. TABLE IN EASY REACH SIDE RAILS UP TIMES 2. COMPLIANT WITH MEDICATIONS. NO ASPIRATION NOTED AND NO SIDE EFFECTS NOTED AT THIS TIME.
--- NOTE | 2022-11-26 09:30 | NUR ---
DOT Initial Discharge Note: Patient currently lives at home located at [address] [place] [address]; ([phone]). DOT will contact pt's son Luke ([phone]) to gather collateral and discuss treatment/discharge plan. DOT will work with the MD, family, and pt.
--- NOTE | 2022-11-26 09:30 | NUR ---
DOT Clinical Note: Pt placed on a 5150 hold for danger to herself. Pt attempted to take a bottle of Tylenol to end her life. Patient currently lives at home located at [address] [place] [address]; ([phone]). DOT will contact pt's son Luke ([phone]) to gather collateral and discuss treatment/discharge plan. DOT will work with the MD, family, and pt.
--- NOTE | 2022-11-26 09:31 | NUR ---
Treatment Plan: Pt refused to sign treatment plan and was uncooperative.
--- NOTE | 2022-11-26 10:22 | NUR ---
DOT Family Contact: DOT contacted pt's son Luke ([phone]) to discuss treatment. He would want pt back home when she is stable. Luke would want to speak to the doctor. DOT notified. Dr. Gallo.
[2022-11-26] MEDS: GLIMEPIRIDE 1 MG TABLET PO SCH (11:37)
[2022-11-26] MEDS: ATORVASTATIN 40 MG TABLET PO SCH (11:38)
[2022-11-26] MEDS: ASCORBIC ACID 500 MG TABLET PO SCH (11:38)
[2022-11-26] MEDS: FERROUS SULFATE (325 MG) 325 MG/TAB TABLET PO SCH ×2 (11:38→16:51)
[2022-11-26] MEDS: INSULIN REGULAR, HUMAN 100 UNIT/ML 3 ML VIAL SQ PRN ×2 (13:46→17:28)
[2022-11-26] MEDS: LITHIUM CARBONATE 150 MG CAPSULE PO SCH ×2 (15:02→23:00)
[2022-11-26] MEDS: ARIPIPRAZOLE 5 MG TABLET PO SCH (15:07)
[2022-11-26] MEDS ORDERED: MAGNESIUM CITRATE 296 ML BOTTLE PO ONE (15:30)
[2022-11-26 16:00] VITALS: BP 147/90
[2022-11-26] MEDS ORDERED: BISACODYL (5 MG) 5 MG TABLET.DR PO PRN (17:30)
--- NOTE | 2022-11-26 17:37 | NUR ---
BS = 171 - 3 units given sub q as per sliding scale orders
[2022-11-26] MEDS: METOCLOPRAMIDE HCL 10 MG TABLET PO SCH ×2 (18:17→23:01)
--- NOTE | 2022-11-26 18:26 | NUR ---
RN NOTES HELD THE Mg Citrate bottle of medication due to pt not being constipated, had small bm during am shift and had no c/o being constipated, pharmacy notified.
--- NOTE | 2022-11-26 19:06 | NUR ---
RN NOTES LAST TWO PO MEDICATIONS GIVEN CRUSHED WITH CHOCOLATE PUDDING PRIOR TO PT REFUSED THE WHOLE MEDICATIONS, NO ASPIRATION NOTED AND NO SOB NOTED, PT EDUCATED IMPORTANCE OF MEDICATIONS AND ALL NEEDS CARED FOR IN A TIMELY MANNER, NO SIDE EFFECTS NOTED TO ANY ABT TX AND WILL CONTINUE TO MONITOR PT, NO SI THOUGHTS AND PT IN A MORE POSITIVE MOOD AFTER ONE ON ONE THERAPY GIVEN.
--- NOTE | 2022-11-26 19:30 | NUR ---
Pt. was verbally endorsed by day SULEMA COOPER. Initial assessment rendered. VSS noted. Pt. received in bed. No compaints at this time. Monitored for acute distress. Change in VS or change in overall clinical disposition
[2022-11-26 20:00] VITALS: BP 155/87
[2022-11-26 20:26] VITALS: BP 155/87
[2022-11-26] MEDS: POLYETHYLENE GLYCOL 3350 17 GM POWD.PACK PO SCH (22:59)
[2022-11-27] MEDS: METOCLOPRAMIDE HCL 10 MG TABLET PO SCH ×3 (06:21→17:24)
--- NOTE | 2022-11-27 07:50 | NUR ---
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 NO PAIN, NO SOB AND NO DISTRESS NOTED. PATIENT DENIES SI/HI AT THIS TIMES. PATIENT COOPERATIVE WITH FLAT FACE. INCONTINENT AND WEARING DIAPERS. TABLE IN EASY REACH SIDE RAILS UP TIMES 2. COMPLIANT WITH MEDICATIONS. NO ASPIRATION NOTED AND NO SIDE EFFECTS NOTED AT THIS TIME.
[2022-11-27 08:00] VITALS: BP 133/71
[2022-11-27] MEDS: BLOOD SUGAR DIAGNOSTIC 1 EACH STRIP IN SCH ×4 (09:42→21:58)
[2022-11-27] MEDS: PANTOPRAZOLE 40 MG TABLET.DR PO SCH (09:56)
[2022-11-27] MEDS: GLIMEPIRIDE 1 MG TABLET PO SCH (09:56)
[2022-11-27] MEDS: ARIPIPRAZOLE 5 MG TABLET PO SCH (09:56)
[2022-11-27] MEDS: OXYBUTYNIN CHLORIDE 5 MG TABLET PO SCH (09:57)
[2022-11-27] MEDS: FERROUS SULFATE (325 MG) 325 MG/TAB TABLET PO SCH ×2 (09:57→16:57)
[2022-11-27] MEDS: ASPIRIN 81 MG TAB.CHEW PO SCH (09:57)
[2022-11-27] MEDS: LITHIUM CARBONATE 150 MG CAPSULE PO SCH ×2 (09:58→21:43)
[2022-11-27] MEDS: ATORVASTATIN 40 MG TABLET PO SCH (09:58)
[2022-11-27] MEDS: NITROFURANTOIN/MONOHYDRATE MACROCRYSTALS 100 MG CAPSULE PO SCH ×2 (09:59→21:43)
[2022-11-27] MEDS: ASCORBIC ACID 500 MG TABLET PO SCH (10:00)
[2022-11-27] MEDS: LINAGLIPTIN 5 MG TABLET PO SCH (10:00)
[2022-11-27] MEDS: AMLODIPINE BESYLATE 5 MG TABLET PO SCH (10:00)
[2022-11-27] MEDS: INSULIN REGULAR, HUMAN 100 UNIT/ML 3 ML VIAL SQ PRN ×4 (10:03→22:02)
[2022-11-27] MEDS ORDERED: BISACODYL SUPP (10 MG) 10 MG/SUPP.RECT SUPP.RECT RC ONE (11:30)
[2022-11-27] MEDS: PSYLLIUM SEED 1 PKT PACKET PO SCH (12:45)
[2022-11-27 16:00] VITALS: BP 131/74
--- NOTE | 2022-11-27 19:00 | NUR ---
GPS RN CLOSING NOTE DAYSHIFT Patient cooperative and compliant with all medications. No signs of HI/SI. No signs of distress. Vital signs stable. Blood sugar controlled with regular insulin sliding scale per hospitalist order. Appetite is good, eating 100% of all meals. Endorse to shift nurse manager RN for MARY ELLEN.
[2022-11-27 20:00] VITALS: BP 142/71
[2022-11-27] MEDS: POLYETHYLENE GLYCOL 3350 17 GM POWD.PACK PO SCH (21:44)
[2022-11-28] MEDS: METOCLOPRAMIDE HCL 10 MG TABLET PO SCH ×5 (00:13→23:18)
--- NOTE | 2022-11-28 06:44 | NUR ---
GPS RN CLOSING NOTE PT SLEEPING IN BED AT THIS TIME. A/O X2. STABLE ON RA WITH NO SIGNS OF DISTRESS. PT IS QUIET, GUARDED, ANXIOUS, FLAT AFFECT. COOPERATIVE AND MED COMPLIANT. BLOOD SUGAR OF 167 @ 2200 COVERED WITH 3 UNITS OF INSULIN PER SLIDING SCALE ORDER. ALL CARE PROVIDED AND MEDS TOLERATED WELL. SAFETY PRECAUTIONS MAINTAINED. WILL ENDORSE MARY ELLEN TO ONCOMING NURSE.
--- NOTE | 2022-11-28 07:40 | NUR ---
GPS RN OPENING NOTE PT AWAKE IN BED, ALL 4 BED WHEELS LOCKED AND BED LOW TO FLOOR, PATIENT IS A & O X 2 IRISH AND SPANISH SPEAKER, PATIENT ABLE TO MAKE NEEDS KNOWN. NO PAIN, NO SOB AND NO DISTRESS NOTED. PATIENT COOPERATIVE WITH FLAT FACE. INCONTINENT AND WEARING DIAPERS. TABLE IN EASY REACH SIDE RAILS UP TIMES 2. WILL CONTINUE TO MONITOR.
[2022-11-28] MEDS: BLOOD SUGAR DIAGNOSTIC 1 EACH STRIP IN SCH ×4 (07:57→21:37)
[2022-11-28 08:00] VITALS: BP 141/85
[2022-11-28] MEDS: PANTOPRAZOLE 40 MG TABLET.DR PO SCH (08:26)
[2022-11-28] MEDS: LITHIUM CARBONATE 150 MG CAPSULE PO SCH ×2 (08:30→21:23)
[2022-11-28] MEDS: FERROUS SULFATE (325 MG) 325 MG/TAB TABLET PO SCH ×2 (08:30→17:36)
[2022-11-28] MEDS: NITROFURANTOIN/MONOHYDRATE MACROCRYSTALS 100 MG CAPSULE PO SCH ×2 (08:30→21:22)
[2022-11-28] MEDS: ASCORBIC ACID 500 MG TABLET PO SCH (08:31)
[2022-11-28] MEDS: ATORVASTATIN 40 MG TABLET PO SCH (08:31)
[2022-11-28] MEDS: ARIPIPRAZOLE 5 MG TABLET PO SCH (08:31)
[2022-11-28] MEDS: GLIMEPIRIDE 1 MG TABLET PO SCH (08:31)
[2022-11-28] MEDS: LINAGLIPTIN 5 MG TABLET PO SCH (08:31)
[2022-11-28] MEDS: OXYBUTYNIN CHLORIDE 5 MG TABLET PO SCH (08:31)
[2022-11-28] MEDS: ASPIRIN 81 MG TAB.CHEW PO SCH (08:31)
[2022-11-28] MEDS: AMLODIPINE BESYLATE 5 MG TABLET PO SCH (08:32)
[2022-11-28] MEDS: PSYLLIUM SEED 1 PKT PACKET PO SCH (08:32)
[2022-11-28] MEDS: INSULIN REGULAR, HUMAN 100 UNIT/ML 3 ML VIAL SQ PRN ×4 (08:39→21:36)
[2022-11-28] MEDS ORDERED: LACTULOSE 10 G/15 ML UDC (PYXIS) PO ONE (10:30)
[2022-11-28 16:27] VITALS: BP 128/64
[2022-11-28] MEDS ORDERED: NA PHOS,M-B/NA PHOS,DI-BA 1 EA ENEMA RC ONE (16:30)
--- NOTE | 2022-11-28 18:50 | NUR ---
GPS RN NOTE PT AWAKE IN BED, ALL 4 BED WHEELS LOCKED AND BED LOW TO FLOOR, PATIENT IS A & O X 2 TOGOLESE AND TAIWANESE SPEAKER, PATIENT ABLE TO MAKE NEEDS KNOWN. NO PAIN, NO SOB AND NO DISTRESS NOTED. PATIENT IS COOPERATIVE ALL THROUGHOUT THE SHIFT. WILL ENDORSED TO NIGHT NURSE
[2022-11-28 20:25] VITALS: BP 135/66
[2022-11-28] MEDS: POLYETHYLENE GLYCOL 3350 17 GM POWD.PACK PO SCH (21:23)
--- NOTE | 2022-11-28 22:10 | NUR ---
RECEIVED PATIENT IN BED, ALERT/ORIENTED X2, ROOM AIR, NO COMPLAIN OF PAIN, SAMMARINESE SPEAKING, UNDERSTANDS LITTLE WOLOF, ABLE TO MAKE NEEDS KNOWN. TOOK ALL PM MEDS, BG 195 GIVEN REGULAR INSULIN 3 UNITS, PROVIDED SNACK AT THE BEDSIDE. KEPT SAFE, WILL CONTINUE TO MONITOR FOR SAFETY.
[2022-11-29] MEDS: METOCLOPRAMIDE HCL 10 MG TABLET PO SCH ×4 (05:51→23:40)
[2022-11-29] MEDS: BLOOD SUGAR DIAGNOSTIC 1 EACH STRIP IN SCH ×4 (07:54→21:23)
[2022-11-29 08:00] VITALS: BP 142/73
[2022-11-29] MEDS: PANTOPRAZOLE 40 MG TABLET.DR PO SCH (08:34)
[2022-11-29] MEDS: FERROUS SULFATE (325 MG) 325 MG/TAB TABLET PO SCH ×2 (08:34→16:29)
[2022-11-29] MEDS: ARIPIPRAZOLE 5 MG TABLET PO SCH (08:34)
[2022-11-29] MEDS: GLIMEPIRIDE 1 MG TABLET PO SCH (08:34)
[2022-11-29] MEDS: PSYLLIUM SEED 1 PKT PACKET PO SCH (08:34)
[2022-11-29] MEDS: NITROFURANTOIN/MONOHYDRATE MACROCRYSTALS 100 MG CAPSULE PO SCH ×2 (08:34→22:19)
[2022-11-29] MEDS: OXYBUTYNIN CHLORIDE 5 MG TABLET PO SCH (08:34)
[2022-11-29] MEDS: ASPIRIN 81 MG TAB.CHEW PO SCH (08:35)
[2022-11-29] MEDS: ATORVASTATIN 40 MG TABLET PO SCH (08:35)
[2022-11-29] MEDS: AMLODIPINE BESYLATE 5 MG TABLET PO SCH (08:35)
[2022-11-29] MEDS: ASCORBIC ACID 500 MG TABLET PO SCH (08:35)
[2022-11-29] MEDS: LINAGLIPTIN 5 MG TABLET PO SCH (08:35)
[2022-11-29] MEDS: LITHIUM CARBONATE 150 MG CAPSULE PO SCH ×2 (09:40→22:20)
[2022-11-29] MEDS: INSULIN REGULAR, HUMAN 100 UNIT/ML 3 ML VIAL SQ PRN ×3 (13:09→21:27)
[2022-11-29 16:00] VITALS: BP 138/66
--- NOTE | 2022-11-29 17:38 | NUR ---
RN-NOTES PATIENT VISIBLE IN THE UNIT,A/O X2 CALM,COOPERATIVE WITH STAFF,NO ACUTE DISTRESS NOTED. COMPLIANT WITH MEDICATIONS.PATIENT AMBULATORY STEADY GAIT.. ALL NEEDS ATTENDED AND ANTICIPATED. WILL CONT. MONITORING FOR SAFETY AND BEHAVIOR.WILL ENDORSE TO INCOMING NURSE FOR THE CONTINUITY OF CARE.
[2022-11-29 20:00] VITALS: BP 146/62
[2022-11-29] MEDS: POLYETHYLENE GLYCOL 3350 17 GM POWD.PACK PO SCH (22:19)
--- NOTE | 2022-11-30 04:02 | NUR ---
closing notes: Alert when name spoken flat affect she is cooperative with medication Blood sugar last night 166 covered with 3 units as ordered when i asked her if she was passing gas she gave me no answer but she did smile ! she is quiet and cooperative slept thru the night
[2022-11-30] MEDS: METOCLOPRAMIDE HCL 10 MG TABLET PO SCH ×4 (05:23→23:59)
[2022-11-30 07:16] LABS: BASOPHILS % (AUTO) 0.5 % (0.0-2.0); EOSINOPHILS % (AUTO) 2.7 % (0.0-6.0); HEMATOCRIT 24 % (33-45); HEMOGLOBIN 7.1 g/dL (11.5-14.8); LYMPHOCYTES # (AUTO) 1.8 K/uL (0.8-4.8); LYMPHOCYTES % (AUTO) 20.3 % (20.0-44.0); MEAN CORPUSCULAR HGB CONC 29 g/dl (31.0-36.0); MEAN CORPUSCULAR VOLUME 64 fL (82-100); MONOCYTES # (AUTO) 0.8 K/uL (0.1-1.30); MONOCYTES % (AUTO) 8.6 % (2.0-12.0); NEUTROPHILS # (AUTO) 6.1 K/uL (1.8-8.9); NEUTROPHILS % (AUTO) 67.9 % (43.0-81.0); PLATELET COUNT (AUTO) 546 K/uL (150-450); RED BLOOD CELL COUNT(AUTO) 3.74 MIL/uL (4.0-5.2); WHITE BLOOD COUNT (AUTO) 8.9 K/uL (4.3-11.0)
[2022-11-30 07:32] LABS: CALCIUM, SERUM 10.2 mg/dL (8.5-10.1); CREATININE 0.7 mg/dL (0.6-1.3); MAGNESIUM 2.4 mg/dL (1.8-2.4)
[2022-11-30] MEDS: BLOOD SUGAR DIAGNOSTIC 1 EACH STRIP IN SCH ×4 (07:51→22:11)
[2022-11-30] MEDS: PANTOPRAZOLE 40 MG TABLET.DR PO SCH (07:54)
[2022-11-30 08:00] VITALS: BP 135/71
[2022-11-30] MEDS: OXYBUTYNIN CHLORIDE 5 MG TABLET PO SCH (08:59)
[2022-11-30] MEDS: PSYLLIUM SEED 1 PKT PACKET PO SCH (08:59)
[2022-11-30] MEDS: LITHIUM CARBONATE 150 MG CAPSULE PO SCH ×2 (09:00→21:26)
[2022-11-30] MEDS: GLIMEPIRIDE 1 MG TABLET PO SCH (09:00)
[2022-11-30] MEDS: AMLODIPINE BESYLATE 5 MG TABLET PO SCH (09:00)
[2022-11-30] MEDS: LINAGLIPTIN 5 MG TABLET PO SCH (09:00)
[2022-11-30] MEDS: ATORVASTATIN 40 MG TABLET PO SCH (09:00)
[2022-11-30] MEDS: ARIPIPRAZOLE 5 MG TABLET PO SCH (09:01)
[2022-11-30] MEDS: FERROUS SULFATE (325 MG) 325 MG/TAB TABLET PO SCH ×2 (09:01→17:04)
[2022-11-30] MEDS: ASPIRIN 81 MG TAB.CHEW PO SCH (09:01)
[2022-11-30] MEDS: NITROFURANTOIN/MONOHYDRATE MACROCRYSTALS 100 MG CAPSULE PO SCH ×2 (09:01→21:24)
[2022-11-30] MEDS: ASCORBIC ACID 500 MG TABLET PO SCH (09:01)
[2022-11-30] MEDS: clonazePAM 0.5 MG TABLET PO SCH (15:36)
--- NOTE | 2022-11-30 15:36 | NUR ---
RN- NOTES KLONOPIN GIVEN DUE TO PATIENT INCREASED ANXIETY, PACING THE HALLWAY, AND VERBALIZING FEELINGS OF STRESS/ANXIOUSNESS.
[2022-11-30 16:00] VITALS: BP 108/56
--- NOTE | 2022-11-30 16:59 | NUR ---
RN- NOTES BLOOD GLUCOSE NOTED AT 144.
--- NOTE | 2022-11-30 18:32 | NUR ---
RN- CLOSING NOTES PATIENT IS ASLEEP IN BED, BREATHING EVEN AND NON LABORED WITH NO S/S OF DISTRESS. A/O X2. PT. IS GUARDED, ANXIOUS, AND ISOLATIVE. PATIENT STATED, "CAN I GET SOMETHING FOR ANXIETY PLEASE?" KLONOPIN PRN ADMINISTERED. PATIENT STATED THAT THEY ARE FEELING BETTER ONE HOUR AFTER. PATIENT IS MEDICATION COMPLIANT. AMBULATORY WITH NO ASSISTANCE AND DENIES SI/HI AT THIS TIME. WILL CONTINUE TO MONITOR Q 15 MINUTES FOR SAFETY AND BEHAVIOR.
[2022-11-30 20:26] VITALS: BP 136/62
[2022-11-30] MEDS: POLYETHYLENE GLYCOL 3350 17 GM POWD.PACK PO SCH (21:26)
--- NOTE | 2022-11-30 22:00 | NUR ---
Nurses notes: Pts BS was ck, it was 142, 2 units of regular insulin given.
[2022-11-30] MEDS: INSULIN REGULAR, HUMAN 100 UNIT/ML 3 ML VIAL SQ PRN (22:13)
[2022-12-01] MEDS: METOCLOPRAMIDE HCL 10 MG TABLET PO SCH ×3 (05:55→17:09)
--- NOTE | 2022-12-01 07:20 | NUR ---
GPS RN OPENING NOTES: RECEIVED PATIENT IN BED ASLEEP BUT EASILY AROUSES TO VOICE. NO RESPIRATORY DISTRESS NOTED, BREATHING EVEN AND UNLABORED. PATIENT IS ALERT, ORIENTED X2. PATIENT IS GUARDED AND ASKED THE NURSE IF IT'S OK TO STAY IN HER BED. PATIENT INFORMED TO STAY AND SHE MAY GO TO THE DINING ROOM LATER TODAY. PATIENT AGREED. PATIENT DENIES SI/HI AT THIS TIME. ALL SAFETY MEASURES IN PLACE. WILL CONTINUE TO MONITOR Q 15 MINUTES FOR SAFETY AND BEHAVIOR.
[2022-12-01] MEDS: PANTOPRAZOLE 40 MG TABLET.DR PO SCH (07:51)
[2022-12-01] MEDS: INSULIN REGULAR, HUMAN 100 UNIT/ML 3 ML VIAL SQ PRN ×4 (07:52→22:23)
[2022-12-01] MEDS: BLOOD SUGAR DIAGNOSTIC 1 EACH STRIP IN SCH ×4 (07:53→22:04)
[2022-12-01 08:00] VITALS: BP 134/74
[2022-12-01] MEDS: ARIPIPRAZOLE 5 MG TABLET PO SCH (08:47)
[2022-12-01] MEDS: ASPIRIN 81 MG TAB.CHEW PO SCH (08:47)
[2022-12-01] MEDS: LITHIUM CARBONATE 150 MG CAPSULE PO SCH ×2 (08:47→22:05)
[2022-12-01] MEDS: PSYLLIUM SEED 1 PKT PACKET PO SCH (08:47)
[2022-12-01] MEDS: ASCORBIC ACID 500 MG TABLET PO SCH (08:47)
[2022-12-01] MEDS: NITROFURANTOIN/MONOHYDRATE MACROCRYSTALS 100 MG CAPSULE PO SCH ×2 (08:47→22:04)
[2022-12-01] MEDS: OXYBUTYNIN CHLORIDE 5 MG TABLET PO SCH (08:48)
[2022-12-01] MEDS: FERROUS SULFATE (325 MG) 325 MG/TAB TABLET PO SCH ×2 (08:48→16:21)
[2022-12-01] MEDS: AMLODIPINE BESYLATE 5 MG TABLET PO SCH (08:48)
[2022-12-01] MEDS: ATORVASTATIN 40 MG TABLET PO SCH (08:48)
[2022-12-01] MEDS: LINAGLIPTIN 5 MG TABLET PO SCH (08:48)
[2022-12-01] MEDS: GLIMEPIRIDE 1 MG TABLET PO SCH (08:48)
[2022-12-01] MEDS: MAGNESIUM HYDROXIDE 30 ML UDC PO PRN (12:08)
[2022-12-01 16:00] VITALS: BP 151/96
[2022-12-01] MEDS: clonazePAM 0.5 MG TABLET PO SCH (17:57)
--- NOTE | 2022-12-01 18:16 | NUR ---
GPS RN CLOSING NOTES: PATIENT RESTING IN BED AT THI TIME. NO RESPIRATORY DISTRESS NOTED THROUGHOUT SHIFT. ON RA. TOLERATING WELL. PATIENT IS ALERT, ORIENTED X2. PATIENT IS GUARDED BUT NO S/S AGITATION NOTED. ALL MEDICATIONS ADMINISTERED ORDERED AND PATIENT IS COMPLIANT WITH ALL HER MEDICATIONS. MEDICATED PRN MED FOR ANXIETY. PATIENT DENIES SI/HI AT THIS TIME. ALL SAFETY MEASURES IMPLEMENTED. WILL ENDORSE TO INCOMING NURSE FOR CONTINUITY OF CARE.
[2022-12-01 20:21] VITALS: BP 134/74
[2022-12-01] MEDS: POLYETHYLENE GLYCOL 3350 17 GM POWD.PACK PO SCH (22:05)
[2022-12-02] MEDS: METOCLOPRAMIDE HCL 10 MG TABLET PO SCH ×4 (00:36→17:19)
--- NOTE | 2022-12-02 07:30 | NUR ---
RN NOTES PT IN BED, AWAKE, ALERT AND VERBALLY RESPONSIVE, NO COMPLAINT OF PAIN OR ANY DISCOMFORT, KEPT COMFORTABLE IN BED, BLOOD SUGAR CHECKED, NO S/S OF HYPO/HYPERGLYCEMIA NOTED.
[2022-12-02 08:00] VITALS: BP 141/83
[2022-12-02] MEDS: BLOOD SUGAR DIAGNOSTIC 1 EACH STRIP IN SCH ×4 (08:24→21:04)
[2022-12-02] MEDS: PSYLLIUM SEED 1 PKT PACKET PO SCH (08:24)
[2022-12-02] MEDS: GLIMEPIRIDE 1 MG TABLET PO SCH (08:24)
[2022-12-02] MEDS: PANTOPRAZOLE 40 MG TABLET.DR PO SCH (08:25)
[2022-12-02] MEDS: FERROUS SULFATE (325 MG) 325 MG/TAB TABLET PO SCH ×2 (08:25→17:18)
[2022-12-02] MEDS: ARIPIPRAZOLE 5 MG TABLET PO SCH (08:25)
[2022-12-02] MEDS: NITROFURANTOIN/MONOHYDRATE MACROCRYSTALS 100 MG CAPSULE PO SCH ×2 (08:25→21:04)
[2022-12-02] MEDS: LINAGLIPTIN 5 MG TABLET PO SCH (08:26)
[2022-12-02] MEDS: ASCORBIC ACID 500 MG TABLET PO SCH (08:26)
[2022-12-02] MEDS: OXYBUTYNIN CHLORIDE 5 MG TABLET PO SCH (08:26)
[2022-12-02] MEDS: LITHIUM CARBONATE 150 MG CAPSULE PO SCH ×2 (08:26→21:04)
[2022-12-02] MEDS: ATORVASTATIN 40 MG TABLET PO SCH (08:26)
[2022-12-02] MEDS: ASPIRIN 81 MG TAB.CHEW PO SCH (08:26)
[2022-12-02] MEDS: AMLODIPINE BESYLATE 5 MG TABLET PO SCH (08:26)
--- NOTE | 2022-12-02 10:44 | NUR ---
Court Hearing: Patient's court hearing for 5250 was today and it was upheld for GD and danger to self.
--- NOTE | 2022-12-02 10:44 | NUR ---
Court Notification: SW contacted pt's son Luke ([phone]) to notify of 4550 hearing.
[2022-12-02] MEDS: INSULIN REGULAR, HUMAN 100 UNIT/ML 3 ML VIAL SQ PRN ×2 (11:48→21:47)
[2022-12-02 16:00] VITALS: BP 123/76
--- NOTE | 2022-12-02 18:37 | NUR ---
RN NOTES PT IN BED, RESTING, NO COMPLAINT OF PAIN OR ANY DISCOMFORT, NOT IN DISTRESS, COMPLIANT WITH MEDICATIONS AND INTERVENTIONS, WITH GOOD ORAL INTAKE, BS CHECKED, NO SIGNS OF HYPO/HYPERGLYCEMIA NOTED.
[2022-12-02 20:26] VITALS: BP 123/56
[2022-12-02] MEDS: POLYETHYLENE GLYCOL 3350 17 GM POWD.PACK PO SCH (21:04)
--- NOTE | 2022-12-03 05:36 | NUR ---
END OF SHIFT REPORT Patient in bed, sleeping, arouses easily. On abx treatment, WBC improved, denies bladder discomfort. Afebrile. Compliant with treatment and medication. No agitated behavior during the shift. Fall precaution maintained. Plan for Continue inpatient [facility] hospitalization. Behavior management per psychiatry. Will endorse to oncoming RN.
[2022-12-03] MEDS: METOCLOPRAMIDE HCL 10 MG TABLET PO SCH ×5 (06:51→23:23)
[2022-12-03 07:12] LABS: BASOPHILS % (AUTO) 0.6 % (0.0-2.0); EOSINOPHILS % (AUTO) 2.4 % (0.0-6.0); HEMATOCRIT 27 % (33-45); HEMOGLOBIN 7.8 g/dL (11.5-14.8); LYMPHOCYTES # (AUTO) 1.5 K/uL (0.8-4.8); LYMPHOCYTES % (AUTO) 19.3 % (20.0-44.0); MEAN CORPUSCULAR HGB CONC 29 g/dl (31.0-36.0); MEAN CORPUSCULAR VOLUME 66 fL (82-100); MONOCYTES # (AUTO) 0.7 K/uL (0.1-1.30); MONOCYTES % (AUTO) 9.4 % (2.0-12.0); NEUTROPHILS # (AUTO) 5.2 K/uL (1.8-8.9); NEUTROPHILS % (AUTO) 68.3 % (43.0-81.0); PLATELET COUNT (AUTO) 521 K/uL (150-450); RED BLOOD CELL COUNT(AUTO) 4.14 MIL/uL (4.0-5.2); WHITE BLOOD COUNT (AUTO) 7.7 K/uL (4.3-11.0)
[2022-12-03 07:46] LABS: CALCIUM, SERUM 10.4 mg/dL (8.5-10.1); CREATININE 0.5 mg/dL (0.6-1.3)
[2022-12-03 07:47] LABS: ALBUMIN 3.5 g/dL (3.4-5.0); BILIRUBIN,TOTAL 0.2 mg/dL (0.2-1.0); TOTAL PROTEIN, SERUM 7.2 g/dL (6.4-8.2)
[2022-12-03] MEDS: PANTOPRAZOLE 40 MG TABLET.DR PO SCH (07:49)
[2022-12-03] MEDS: BLOOD SUGAR DIAGNOSTIC 1 EACH STRIP IN SCH ×4 (07:49→22:17)
[2022-12-03 08:00] VITALS: BP 148/66
[2022-12-03] MEDS: GLIMEPIRIDE 1 MG TABLET PO SCH (09:19)
[2022-12-03] MEDS: ARIPIPRAZOLE 5 MG TABLET PO SCH ×2 (09:19→17:01)
[2022-12-03] MEDS: PSYLLIUM SEED 1 PKT PACKET PO SCH (09:19)
[2022-12-03] MEDS: ASCORBIC ACID 500 MG TABLET PO SCH (09:20)
[2022-12-03] MEDS: ASPIRIN 81 MG TAB.CHEW PO SCH (09:20)
[2022-12-03] MEDS: LINAGLIPTIN 5 MG TABLET PO SCH (09:20)
[2022-12-03] MEDS: ATORVASTATIN 40 MG TABLET PO SCH (09:20)
[2022-12-03] MEDS: AMLODIPINE BESYLATE 5 MG TABLET PO SCH (09:21)
[2022-12-03] MEDS: LITHIUM CARBONATE 150 MG CAPSULE PO SCH ×2 (09:21→21:46)
[2022-12-03] MEDS: FERROUS SULFATE (325 MG) 325 MG/TAB TABLET PO SCH ×2 (09:21→17:01)
[2022-12-03] MEDS: NITROFURANTOIN/MONOHYDRATE MACROCRYSTALS 100 MG CAPSULE PO SCH ×2 (09:22→21:46)
[2022-12-03] MEDS: OXYBUTYNIN CHLORIDE 5 MG TABLET PO SCH (09:22)
[2022-12-03] MEDS: ACETAMINOPHEN 325 MG TABLET PO PRN (09:35)
--- NOTE | 2022-12-03 09:35 | NUR ---
NURSE NOTE: PT C/O HEADACHE. TYL PO ADMINISTERED ORDERED. PT GONZALO WELL. WILL CONT TO MONITOR.
--- NOTE | 2022-12-03 10:30 | NUR ---
NURSE NOTE: PT STATED THAT SHE FEELS A LITTLE BETTER. TYL EFFECTIVE AT THIS TIME. WILL CONT TO MONITOR.
[2022-12-03] MEDS: INSULIN REGULAR, HUMAN 100 UNIT/ML 3 ML VIAL SQ PRN ×2 (13:25→22:17)
[2022-12-03 14:37] LABS: BASOPHILS % (MANUAL) 0 % (0.0-2.0); EOSINOPHILS % (MANUAL) 3 % (0-4); LYMPHOCYTES % (MANUAL) 12 % (16-48); MONOCYTES % (MANUAL) 5 % (0-11.0); NEUTROPHILS % (MANUAL) 80 (42-76)
[2022-12-03 16:00] VITALS: BP 115/54
--- NOTE | 2022-12-03 17:00 | NUR ---
NURSE NOTE: PT HAS NOT HAD BM SINCE 11/30. MOM ADMIN ORDERED. PT GONZALO WELL. WILL CONT TO MONITOR.
[2022-12-03] MEDS: MAGNESIUM HYDROXIDE 30 ML UDC PO PRN (17:09)
[2022-12-03] MEDS: POLYETHYLENE GLYCOL 3350 17 GM POWD.PACK PO SCH (21:46)
--- NOTE | 2022-12-04 02:24 | NUR ---
RN NOTE PT CONSTIPATION UNRESOLVED BY PRESCRIBED MEDICATIONS. DR WHITE NOTIFIED, ORDERED TO DISCONTINUE PO DULCOLAX 5 MG AND STARTED ON DULCOLAX 10 [address] SU[address] DAILY PRN. DR WHITE ALSO ORDERED FLEET ENEMA X1 IF SUPPOSITORY IS INEFFECTIVE.
[2022-12-04] MEDS: BISACODYL SUPP (10 MG) 10 MG/SUPP.RECT SUPP.RECT RC PRN (02:30)
--- NOTE | 2022-12-04 04:12 | NUR ---
RN NOTE PT ABLE TO PRODUCE BOWEL MOVEMENT. FECAL SAMPLE COLLECTED AND DELIVERED TO LAB. ADDITIONAL FLEET ENEMA ORDER NOT GIVEN DUE TO DULCOLAX 10 MG SUPPOSITORY BEING EFFECTIVE.
[2022-12-04 04:52] LABS: OCCULT BLOOD STOOL POSITIVE (NEGATIVE)
--- NOTE | 2022-12-04 05:38 | NUR ---
RN NOTE FECAL OCCULT BLOOD RESULT: POSITIVE. DR WHITE NOTIFIED AND ACKNOWLEDGED.
[2022-12-04] MEDS: METOCLOPRAMIDE HCL 10 MG TABLET PO SCH ×3 (05:54→17:19)
[2022-12-04 07:07] LABS: IMMUNOGLOBULIN A, SERUM 234 mg/dL (87-352); IMMUNOGLOBULIN G, SERUM 962 mg/dL (586-1602); IMMUNOGLOBULIN M, SERUM 68 mg/dL (26-217)
[2022-12-04] MEDS: PANTOPRAZOLE 40 MG TABLET.DR PO SCH (07:27)
--- NOTE | 2022-12-04 07:32 | NUR ---
GPS RN CLOSING NOTES PT IN BED RESTING AT THIS TIME. A/O X2, COOPERATIVE, CALM, STAYED IN BED, MED COMPLIANT. HAD BOWEL MOVEMENT AFTER NEW ORDER FROM DR WHITE OF DULCOLAX SUPPOSITORY. FECAL SAMPLE TAKEN FOR OCCULT BLOOD ORDER AND SENT TO LAB. WILL ENDORSE MARY ELLEN TO DAY SHIFT NURSE.
[2022-12-04] MEDS: BLOOD SUGAR DIAGNOSTIC 1 EACH STRIP IN SCH ×4 (07:37→21:42)
[2022-12-04] MEDS: INSULIN REGULAR, HUMAN 100 UNIT/ML 3 ML VIAL SQ PRN ×4 (07:37→21:47)
[2022-12-04 08:00] VITALS: BP 145/75
[2022-12-04] MEDS: OXYBUTYNIN CHLORIDE 5 MG TABLET PO SCH (08:24)
[2022-12-04] MEDS: ASCORBIC ACID 500 MG TABLET PO SCH (08:24)
[2022-12-04] MEDS: LINAGLIPTIN 5 MG TABLET PO SCH (08:24)
[2022-12-04] MEDS: GLIMEPIRIDE 1 MG TABLET PO SCH (08:24)
[2022-12-04] MEDS: FERROUS SULFATE (325 MG) 325 MG/TAB TABLET PO SCH ×2 (08:24→16:21)
[2022-12-04] MEDS: PSYLLIUM SEED 1 PKT PACKET PO SCH (08:24)
[2022-12-04] MEDS: ATORVASTATIN 40 MG TABLET PO SCH (08:25)
[2022-12-04] MEDS: NITROFURANTOIN/MONOHYDRATE MACROCRYSTALS 100 MG CAPSULE PO SCH ×2 (08:25→20:35)
[2022-12-04] MEDS: ARIPIPRAZOLE 5 MG TABLET PO SCH ×2 (08:25→16:21)
[2022-12-04] MEDS: AMLODIPINE BESYLATE 5 MG TABLET PO SCH (08:25)
[2022-12-04] MEDS: ASPIRIN 81 MG TAB.CHEW PO SCH (08:25)
--- NOTE | 2022-12-04 08:58 | NUR ---
RN NOTE PATIENT WITH POSITIVE OCCULT BLOOD, REPORTED TO SAEID DUVALL NP AND ACKNOWLEDGED. NO NEW ORDER MADE AT THIS TIME.
[2022-12-04] MEDS: LITHIUM CARBONATE 150 MG CAPSULE PO SCH ×2 (09:14→21:43)
[2022-12-04 13:07] LABS: *SPE A/G RATIO 0.8 (0.7-1.7); *SPE ALPHA-1-GLOBULIN 0.3 g/dL (0.0-0.4); *SPE ALPHA-2-GLOBULIN 1.2 g/dL (0.4-1.0); *SPE BETA GLOBULIN 1.2 g/dL (0.7-1.3); *SPE M-SPIKE Not Observed g/dL (Not Observed)
[2022-12-04 16:00] VITALS: BP 133/62
[2022-12-04 16:07] LABS: *ANA ANTI-CENTROMERE B AB <0.2 AI (0.0-0.9); *ANA ANTI-DNA(DS) AB, QN <1 IU/mL (0-9); *ANA ANTI-JO-1 <0.2 AI (0.0-0.9); *ANA ANTICHROMATIN ANTIBODY <0.2 AI (0.0-0.9); *ANA RNP ANTIBODIES >8.0 AI (0.0-0.9); *ANA SJOGREN'S ANTI-SS-A <0.2 AI (0.0-0.9); *ANA SJOGREN'S ANTI-SS-B <0.2 AI (0.0-0.9); *ANAANTI-SCLERODERMA-70 AB <0.2 AI (0.0-0.9); *ANASMITH AB <0.2 AI (0.0-0.9)
[2022-12-04 16:13] LABS: BASOPHILS # (AUTO) 0.1 K/uL (0.0-0.2); BASOPHILS % (AUTO) 0.8 % (0.0-2.0); EOSINOPHILS % (AUTO) 1.3 % (0.0-6.0); HEMATOCRIT 29 % (33-45); HEMOGLOBIN 8.2 g/dL (11.5-14.8); LYMPHOCYTES # (AUTO) 1.3 K/uL (0.8-4.8); LYMPHOCYTES % (AUTO) 14.2 % (20.0-44.0); MEAN CORPUSCULAR HGB CONC 29 g/dl (31.0-36.0); MEAN CORPUSCULAR VOLUME 67 fL (82-100); MONOCYTES # (AUTO) 0.8 K/uL (0.1-1.30); MONOCYTES % (AUTO) 8.1 % (2.0-12.0); NEUTROPHILS % (AUTO) 75.6 % (43.0-81.0); PLATELET COUNT (AUTO) 540 K/uL (150-450); WHITE BLOOD COUNT (AUTO) 9.2 K/uL (4.3-11.0)
[2022-12-04 17:21] LABS: LYMPHOCYTES % (MANUAL) 11 % (16-48); MONOCYTES % (MANUAL) 9 % (0-11.0); NEUTROPHILS % (MANUAL) 80 (42-76)
[2022-12-04 20:00] VITALS: BP 125/64
[2022-12-04] MEDS: POLYETHYLENE GLYCOL 3350 17 GM POWD.PACK PO SCH (21:43)
[2022-12-05] MEDS: METOCLOPRAMIDE HCL 10 MG TABLET PO SCH ×5 (00:44→23:37)
[2022-12-05 06:15] LABS: HEMOGLOBIN 7.8 g/dL (11.5-14.8); MEAN CORPUSCULAR VOLUME 67 fL (82-100); MONOCYTES # (AUTO) 0.8 K/uL (0.1-1.30); NEUTROPHILS # (AUTO) 5.8 K/uL (1.8-8.9)
[2022-12-05 06:28] LABS: CALCIUM, SERUM 10.2 mg/dL (8.5-10.1); CREATININE 0.6 mg/dL (0.6-1.3); POTASSIUM 3.9 mmol/L (3.5-5.1)
[2022-12-05 07:26] LABS: BASOPHILS % (AUTO) 0.4 % (0.0-2.0); EOSINOPHILS % (AUTO) 2.1 % (0.0-6.0); HEMATOCRIT 27 % (33-45); LYMPHOCYTES % (AUTO) 23.1 % (20.0-44.0); MEAN CORPUSCULAR HGB CONC 29 g/dl (31.0-36.0); MONOCYTES % (AUTO) 9.2 % (2.0-12.0); NEUTROPHILS % (AUTO) 65.2 % (43.0-81.0); PLATELET COUNT (AUTO) 508 K/uL (150-450); WHITE BLOOD COUNT (AUTO) 8.8 K/uL (4.3-11.0)
[2022-12-05 08:00] VITALS: BP 138/67
[2022-12-05] MEDS: ATORVASTATIN 40 MG TABLET PO SCH (08:16)
[2022-12-05] MEDS: PSYLLIUM SEED 1 PKT PACKET PO SCH (08:16)
[2022-12-05] MEDS: ASCORBIC ACID 500 MG TABLET PO SCH (08:16)
[2022-12-05] MEDS: FERROUS SULFATE (325 MG) 325 MG/TAB TABLET PO SCH ×2 (08:16→17:19)
[2022-12-05] MEDS: PANTOPRAZOLE 40 MG TABLET.DR PO SCH (08:16)
[2022-12-05] MEDS: NITROFURANTOIN/MONOHYDRATE MACROCRYSTALS 100 MG CAPSULE PO SCH ×2 (08:17→21:00)
[2022-12-05] MEDS: LITHIUM CARBONATE 150 MG CAPSULE PO SCH ×2 (08:17→21:00)
[2022-12-05] MEDS: ARIPIPRAZOLE 5 MG TABLET PO SCH ×2 (08:17→22:12)
[2022-12-05] MEDS: OXYBUTYNIN CHLORIDE 5 MG TABLET PO SCH (08:18)
[2022-12-05] MEDS: LINAGLIPTIN 5 MG TABLET PO SCH (08:18)
[2022-12-05] MEDS: ASPIRIN 81 MG TAB.CHEW PO SCH (08:18)
[2022-12-05] MEDS: GLIMEPIRIDE 1 MG TABLET PO SCH (08:18)
[2022-12-05] MEDS: BLOOD SUGAR DIAGNOSTIC 1 EACH STRIP IN SCH ×4 (08:56→21:49)
[2022-12-05] MEDS: INSULIN REGULAR, HUMAN 100 UNIT/ML 3 ML VIAL SQ PRN ×3 (09:08→21:18)
[2022-12-05] MEDS: AMLODIPINE BESYLATE 5 MG TABLET PO SCH (09:57)
[2022-12-05 16:00] VITALS: BP 124/80
--- NOTE | 2022-12-05 19:01 | NUR ---
PATIENT HAS BEEN COOPERATIVE AND TOOK ALL MEDS GIVEN DURING THE DAY. PATIENT IS AMBULATORY, OBSERVED ANXIOUS MOST OF THE TIME BUT REMAINED CALM
[2022-12-05 20:00] VITALS: BP 126/56
[2022-12-05] MEDS: POLYETHYLENE GLYCOL 3350 17 GM POWD.PACK PO SCH (21:01)
[2022-12-06] MEDS: METOCLOPRAMIDE HCL 10 MG TABLET PO SCH ×3 (05:11→17:00)
[2022-12-06] MEDS: BLOOD SUGAR DIAGNOSTIC 1 EACH STRIP IN SCH ×4 (07:59→21:16)
[2022-12-06 08:00] VITALS: BP 124/56
[2022-12-06] MEDS: FERROUS SULFATE (325 MG) 325 MG/TAB TABLET PO SCH ×2 (08:04→17:00)
[2022-12-06] MEDS: ASCORBIC ACID 500 MG TABLET PO SCH (08:04)
[2022-12-06] MEDS: PANTOPRAZOLE 40 MG TABLET.DR PO SCH (08:04)
[2022-12-06] MEDS: NITROFURANTOIN/MONOHYDRATE MACROCRYSTALS 100 MG CAPSULE PO SCH ×2 (08:05→21:16)
[2022-12-06] MEDS: LITHIUM CARBONATE 150 MG CAPSULE PO SCH ×2 (08:05→21:15)
[2022-12-06] MEDS: ATORVASTATIN 40 MG TABLET PO SCH (08:05)
[2022-12-06] MEDS: ASPIRIN 81 MG TAB.CHEW PO SCH (08:05)
[2022-12-06] MEDS: LINAGLIPTIN 5 MG TABLET PO SCH (08:05)
[2022-12-06] MEDS: PSYLLIUM SEED 1 PKT PACKET PO SCH (08:05)
[2022-12-06] MEDS: AMLODIPINE BESYLATE 5 MG TABLET PO SCH (08:06)
[2022-12-06] MEDS: GLIMEPIRIDE 1 MG TABLET PO SCH (08:08)
[2022-12-06] MEDS: OXYBUTYNIN CHLORIDE 5 MG TABLET PO SCH (08:08)
--- NOTE | 2022-12-06 08:17 | NUR ---
GPS/RN ACCUCHECK WITH SR=800. NO INSULIN COVERAGE
--- NOTE | 2022-12-06 12:21 | NUR ---
GPS/RN ACCUCHECK WITH LL=576. PT REFUSED NO INSULIN COVERAGE. OFFERED X3
[2022-12-06 14:44] LABS: BASOPHILS # (AUTO) 0.1 K/uL (0.0-0.2); BASOPHILS % (AUTO) 0.7 % (0.0-2.0); EOSINOPHILS % (AUTO) 1.5 % (0.0-6.0); HEMATOCRIT 32 % (33-45); HEMOGLOBIN 9.4 g/dL (11.5-14.8); LYMPHOCYTES # (AUTO) 1.6 K/uL (0.8-4.8); LYMPHOCYTES % (AUTO) 15.1 % (20.0-44.0); MEAN CORPUSCULAR HGB CONC 30 g/dl (31.0-36.0); MEAN CORPUSCULAR VOLUME 67 fL (82-100); MONOCYTES # (AUTO) 0.8 K/uL (0.1-1.30); MONOCYTES % (AUTO) 7.6 % (2.0-12.0); NEUTROPHILS # (AUTO) 7.9 K/uL (1.8-8.9); NEUTROPHILS % (AUTO) 75.1 % (43.0-81.0); PLATELET COUNT (AUTO) 571 K/uL (150-450); RED BLOOD CELL COUNT(AUTO) 4.68 MIL/uL (4.0-5.2); WHITE BLOOD COUNT (AUTO) 10.5 K/uL (4.3-11.0)
[2022-12-06 16:00] VITALS: BP 131/63
[2022-12-06 17:08] LABS: BAND % (MANUAL) 3 % (0.0-5.0); EOSINOPHILS % (MANUAL) 1 % (0-4); LYMPHOCYTES % (MANUAL) 19 % (16-48); MONOCYTES % (MANUAL) 3 % (0-11.0); NEUTROPHILS % (MANUAL) 74 (42-76)
[2022-12-06] MEDS: INSULIN REGULAR, HUMAN 100 UNIT/ML 3 ML VIAL SQ PRN ×2 (17:24→21:30)
--- NOTE | 2022-12-06 19:15 | NUR ---
RN notes Received Pt from morning nurse. Pt is awake and laying in bed comfortably. Pt is alert and orientedX2, calm, disorganized, cooperative and meds compliant. VS is stable. On room air. No SOB. No S/S of distress noted. Pt denies SI/HI at this time. Reality orientation provided. Snacks is offered. Safety precautions is maintained. Will continue to monitor Q 15 mins checks for safety and behavior.
[2022-12-06 20:00] VITALS: BP 134/69
[2022-12-06] MEDS: ARIPIPRAZOLE 5 MG TABLET PO SCH (21:15)
[2022-12-06] MEDS: POLYETHYLENE GLYCOL 3350 17 GM POWD.PACK PO SCH (21:15)
--- NOTE | 2022-12-06 21:31 | NUR ---
RN notes Pt's blood sugar HS 169. Pt refuses coverage. Explained risks and benefits. Pt keep refusing. Will continue to monitor.
[2022-12-07] MEDS: METOCLOPRAMIDE HCL 10 MG TABLET PO SCH ×5 (02:55→23:52)
[2022-12-07 07:14] LABS: BASOPHILS # (AUTO) 0.1 K/uL (0.0-0.2); BASOPHILS % (AUTO) 0.8 % (0.0-2.0); EOSINOPHILS % (AUTO) 2.1 % (0.0-6.0); HEMATOCRIT 28 % (33-45); HEMOGLOBIN 8.2 g/dL (11.5-14.8); LYMPHOCYTES # (AUTO) 1.7 K/uL (0.8-4.8); LYMPHOCYTES % (AUTO) 20.3 % (20.0-44.0); MEAN CORPUSCULAR HGB CONC 29 g/dl (31.0-36.0); MEAN CORPUSCULAR VOLUME 68 fL (82-100); MONOCYTES # (AUTO) 0.8 K/uL (0.1-1.30); MONOCYTES % (AUTO) 9.2 % (2.0-12.0); NEUTROPHILS # (AUTO) 5.7 K/uL (1.8-8.9); NEUTROPHILS % (AUTO) 67.6 % (43.0-81.0); PLATELET COUNT (AUTO) 515 K/uL (150-450); RED BLOOD CELL COUNT(AUTO) 4.19 MIL/uL (4.0-5.2); WHITE BLOOD COUNT (AUTO) 8.4 K/uL (4.3-11.0)
[2022-12-07] MEDS: BLOOD SUGAR DIAGNOSTIC 1 EACH STRIP IN SCH ×4 (07:46→21:52)
[2022-12-07 08:00] VITALS: BP 155/84
[2022-12-07] MEDS: PANTOPRAZOLE 40 MG TABLET.DR PO SCH (08:28)
[2022-12-07] MEDS: ASCORBIC ACID 500 MG TABLET PO SCH (08:30)
[2022-12-07] MEDS: GLIMEPIRIDE 1 MG TABLET PO SCH (08:30)
[2022-12-07] MEDS: PSYLLIUM SEED 1 PKT PACKET PO SCH (08:30)
[2022-12-07] MEDS: LITHIUM CARBONATE 150 MG CAPSULE PO SCH ×2 (08:31→21:47)
[2022-12-07] MEDS: NITROFURANTOIN/MONOHYDRATE MACROCRYSTALS 100 MG CAPSULE PO SCH ×2 (08:31→21:47)
[2022-12-07] MEDS: ATORVASTATIN 40 MG TABLET PO SCH (08:31)
[2022-12-07] MEDS: ASPIRIN 81 MG TAB.CHEW PO SCH (08:33)
[2022-12-07] MEDS: AMLODIPINE BESYLATE 5 MG TABLET PO SCH (08:33)
[2022-12-07] MEDS: OXYBUTYNIN CHLORIDE 5 MG TABLET PO SCH (08:33)
[2022-12-07] MEDS: FERROUS SULFATE (325 MG) 325 MG/TAB TABLET PO SCH ×2 (08:33→17:12)
[2022-12-07] MEDS: LINAGLIPTIN 5 MG TABLET PO SCH (08:33)
[2022-12-07 12:12] LABS: BASOPHILS % (MANUAL) 0 % (0.0-2.0); EOSINOPHILS % (MANUAL) 1 % (0-4); LYMPHOCYTES % (MANUAL) 23 % (16-48); MONOCYTES % (MANUAL) 7 % (0-11.0); NEUTROPHILS % (MANUAL) 69 (42-76)
[2022-12-07] MEDS: BISACODYL SUPP (10 MG) 10 MG/SUPP.RECT SUPP.RECT RC PRN (15:28)
--- NOTE | 2022-12-07 15:30 | NUR ---
NURSE NOTE: PER PT HAVING PROBLEMS HAVING A BM. REQUESTED MILK OF MAGNESIUM. MOM ADMIN ORDERED. PT GONZALO WELL. WILL CONT TO MONITOR. Addendum: 12/07/22 at 1845 by DESIRAE THOMPSON RN ERROR: PT REQUESTED DULCOLAX SUPPOSITORY. SUPP ADMIN ORDERED. PT GONZALO WELL. WILL CONT TO MONITOR.
[2022-12-07 16:00] VITALS: BP 129/63
[2022-12-07 21:38] VITALS: BP 117/57
[2022-12-07] MEDS: ARIPIPRAZOLE 5 MG TABLET PO SCH (21:48)
[2022-12-07] MEDS: POLYETHYLENE GLYCOL 3350 17 GM POWD.PACK PO SCH (21:48)
[2022-12-07] MEDS: INSULIN REGULAR, HUMAN 100 UNIT/ML 3 ML VIAL SQ PRN (21:54)
[2022-12-08] MEDS: METOCLOPRAMIDE HCL 10 MG TABLET PO SCH ×4 (05:19→23:14)
[2022-12-08 08:00] VITALS: BP 141/75
--- NOTE | 2022-12-08 08:00 | NUR ---
RN- NOTES BLOOD GLUCOSE NOTED AT 107.
[2022-12-08] MEDS: PANTOPRAZOLE 40 MG TABLET.DR PO SCH (08:10)
[2022-12-08] MEDS: BLOOD SUGAR DIAGNOSTIC 1 EACH STRIP IN SCH ×4 (08:10→22:26)
[2022-12-08] MEDS: LITHIUM CARBONATE 150 MG CAPSULE PO SCH ×2 (08:56→22:27)
[2022-12-08] MEDS: PSYLLIUM SEED 1 PKT PACKET PO SCH (08:56)
[2022-12-08] MEDS: OXYBUTYNIN CHLORIDE 5 MG TABLET PO SCH (08:57)
[2022-12-08] MEDS: GLIMEPIRIDE 1 MG TABLET PO SCH (08:57)
[2022-12-08] MEDS: AMLODIPINE BESYLATE 5 MG TABLET PO SCH (08:57)
[2022-12-08] MEDS: ASPIRIN 81 MG TAB.CHEW PO SCH (08:57)
[2022-12-08] MEDS: LINAGLIPTIN 5 MG TABLET PO SCH (08:57)
[2022-12-08] MEDS: ATORVASTATIN 40 MG TABLET PO SCH (08:58)
[2022-12-08] MEDS: FERROUS SULFATE (325 MG) 325 MG/TAB TABLET PO SCH ×2 (08:58→17:18)
[2022-12-08] MEDS: NITROFURANTOIN/MONOHYDRATE MACROCRYSTALS 100 MG CAPSULE PO SCH ×2 (08:58→20:13)
[2022-12-08] MEDS: ASCORBIC ACID 500 MG TABLET PO SCH (08:58)
--- NOTE | 2022-12-08 12:00 | NUR ---
RN- NOTES BLOOD GLUCOSE NOTED AT 200.
[2022-12-08] MEDS: INSULIN REGULAR, HUMAN 100 UNIT/ML 3 ML VIAL SQ PRN ×2 (12:52→23:12)
[2022-12-08] MEDS: MAGNESIUM HYDROXIDE 30 ML UDC PO PRN (15:13)
--- NOTE | 2022-12-08 15:19 | NUR ---
NURSE NOTE: PT STATED THAT HE IS HAVING DIFFICULTY HAVING A BM. REQUESTED MILK OF MAG. MOM ADMINISTERED ORDERED. PT GONZALO WELL. WILL CONT TO MONITOR.
[2022-12-08 16:00] VITALS: BP 135/74
--- NOTE | 2022-12-08 17:00 | NUR ---
RN- NOTES BLOOD GLUCOSE NOTED AT 114.
--- NOTE | 2022-12-08 19:20 | NUR ---
RN NOTES RECEIVED PATIENT AWAKE IN BED. A/O TIMES 2. SENEGALESE SPEAKER, KNOWN LITTLE [place] ISLANDER. ABLE TO MAKE NEEDS KNOWN. ALL NEEDS ATTENDED. NO SOB NOTED. NO DISTRESS NOTED. DENIES SI/HI . AMBULATORY. BRP. ALL SAFETY MEASURES IN PLACE. BED LOCKED IN THE LOWEST POSITION. TABLE IN EASY REACH. SIDE RAILS UP TIMES 2. WILL CONTINUE TO MONITOR CLOSELY.
[2022-12-08] MEDS: ACETAMINOPHEN 325 MG TABLET PO PRN (19:33)
--- NOTE | 2022-12-08 19:36 | NUR ---
RN NOTES PRN TYLENOL 650 MG GIVEN PER PATIENT'S REQUEST FOR PAIN 3/10 OF THE RIGHT LOWER LEG. WILL REASSESS PAIN IN 1 HOUR.
[2022-12-08 19:53] VITALS: BP 120/57
--- NOTE | 2022-12-08 20:45 | NUR ---
RN NOTES DR QUIROS VISITED THE PATIENT AT 2044 AND STATED PATIENT NEEDS TO BE TRANSFERRED TO THE MED SURGE UNIT TO GET IV INFUSION OF THE FERRLECIT AND GI DOCTOR CONSULTATION. INFORMED BENCH TOOL MAKER LEXI WHITE , BUT HE DID NOT AGREE TO TRANSFER THE PATIENT. THE DECISION OF STAYING THE PATIENT IN THE [facility] AND GETTING IV FERRLECIT FOR 5 DAYS MADE PER BENCH TOOL MAKER LEXI WHITE AND BRANDON PER CHIEF OPERATOR NURSE . INFORMED DR QUIROS ABOUT THE PATIENT THAT SHE WILL STAY IN [facility] AND SHE WILL GET IV FERRLECIT INFUSION HERE. THE TELEPHONE ORDER OBTAINED FROM DR QUIROS AT 2104 OF FERRLECIT 125 MG IV DAILY FOR 5 DAYS. ORDER NOTED AND CARRIED OUT. STARTED IV SITE AT LEFT WRIST G # 22. THE IV SITE IS INTACT AND FLUSHING WELL.
--- NOTE | 2022-12-08 22:00 | NUR ---
RN NOTES BLOOD SUGAR CHECKED , RESULTED 141. 2 UNITS INSULIN GIVEN ORDERED FOR 0.
[2022-12-08] MEDS: POLYETHYLENE GLYCOL 3350 17 GM POWD.PACK PO SCH (22:27)
[2022-12-08] MEDS: ARIPIPRAZOLE 5 MG TABLET PO SCH (22:27)
--- NOTE | 2022-12-08 23:40 | NUR ---
RN NOTES I WAN NOT ABLE TO SCAN THE MEDICATION FERRLECIT BAG # 1 , SO I ENTERED MANUALLY FOR THE MEDICATION INSTEAD OF SCANNING.
[2022-12-09] MEDS: METOCLOPRAMIDE HCL 10 MG TABLET PO SCH ×4 (05:07→23:17)
--- NOTE | 2022-12-09 06:05 | NUR ---
RN NOTES BLOOD SUGAR CHECKED , RESULTED 91. NO INSULIN COVERAGE.
--- NOTE | 2022-12-09 06:25 | NUR ---
RN CLOSING NOTES PATIENT AWAKE IN BED. A/O TIMES 2. TANZANIAN SPEAKER, KNOWN LITTLE TURKISH. ABLE TO MAKE NEEDS KNOWN. ALL NEEDS ATTENDED. IV ACCESS ON THE LEFT WRIST G # 22 INTACT. FIRST DOSE OF FERRLECIT GIVEN LAST NIGHT . NO ADVERSE REACTION NOTED. ALL DUE MEDS GIVEN ORDERED. NO SOB NOTED. NO DISTRESS NOTED. DENIES SI/HI . AMBULATORY. BRP. ALL SAFETY MEASURES IN PLACE. BED LOCKED IN THE LOWEST POSITION. TABLE IN EASY REACH. SIDE RAILS UP TIMES 2. WILL ENDORSE FOR MARY ELLEN.
[2022-12-09] MEDS: BLOOD SUGAR DIAGNOSTIC 1 EACH STRIP IN SCH ×4 (06:42→22:15)
[2022-12-09] MEDS: PANTOPRAZOLE 40 MG TABLET.DR PO SCH (07:59)
[2022-12-09 08:00] VITALS: BP 123/63
[2022-12-09] MEDS: ACETAMINOPHEN 325 MG TABLET PO PRN (08:03)
--- NOTE | 2022-12-09 08:04 | NUR ---
RN- NOTES TYLENOL GIVEN DUE TO PATIENT STATING A 8/10 GENERALIZED BODY PAIN.
[2022-12-09] MEDS: GLIMEPIRIDE 1 MG TABLET PO SCH (08:05)
[2022-12-09] MEDS: ASPIRIN 81 MG TAB.CHEW PO SCH (08:05)
[2022-12-09] MEDS: NITROFURANTOIN/MONOHYDRATE MACROCRYSTALS 100 MG CAPSULE PO SCH ×2 (08:06→21:57)
[2022-12-09] MEDS: LITHIUM CARBONATE 150 MG CAPSULE PO SCH ×2 (08:06→21:58)
[2022-12-09] MEDS: OXYBUTYNIN CHLORIDE 5 MG TABLET PO SCH (08:06)
[2022-12-09] MEDS: LINAGLIPTIN 5 MG TABLET PO SCH (08:06)
[2022-12-09] MEDS: PSYLLIUM SEED 1 PKT PACKET PO SCH (08:06)
[2022-12-09] MEDS: FERROUS SULFATE (325 MG) 325 MG/TAB TABLET PO SCH ×2 (08:07→16:29)
[2022-12-09] MEDS: AMLODIPINE BESYLATE 5 MG TABLET PO SCH (08:07)
[2022-12-09] MEDS: ATORVASTATIN 40 MG TABLET PO SCH (08:07)
[2022-12-09] MEDS: ASCORBIC ACID 500 MG TABLET PO SCH (08:08)
--- NOTE | 2022-12-09 11:26 | NUR ---
DOT Coordination of Care: Pt will follow up with Psychiatrist, Dr. Villavicencio located [address] [place] [address] on December 19 at 9:30AM via Telehealth.
[2022-12-09] MEDS: INSULIN REGULAR, HUMAN 100 UNIT/ML 3 ML VIAL SQ PRN ×3 (11:37→22:18)
[2022-12-09] MEDS ORDERED: SOD FERRIC GLUC 125 MG in IV NS 0.9% 100 ML IV SCH (14:00)
[2022-12-09] MEDS: SOD FERRIC GLUC 125 MG in IV NS 0.9% 100 ML IV SCH (14:03)
[2022-12-09 16:00] VITALS: BP 134/66
--- NOTE | 2022-12-09 18:31 | NUR ---
RN- CLOSING NOTES PATIENT IS AWAKE, LAYING DOWN IN BED. A/O X1-2. PATIENT IS ISOLATIVE, ANXIOUS, DEPRESSED. GUARDED, AND PERSEVERATING ON HAVING A BOWEL MOVEMENT. PATIENT IS AMBULATORY WITH WALKER. DENIES SI/HI AT THIS TIME. WILL CONTINUE TO MONITOR Q 15 MINUTES FOR SAFETY AND BEHAVIOR.
--- NOTE | 2022-12-09 19:50 | NUR ---
RN NOTE RECEIVED PATIENT AWAKE, RESTING IN BED. PT A/O X 2, CHINESE SPEAKING, ABLE TO MAKE NEEDS KNOWN. NO SOB, NO RESPIRATORY DISTRESS NOTED. DENIES SI/HI. PT IS AMBULATORY. ALL SAFETY MEASURES IN PLACE. BED LOCKED IN THE LOWEST POSITION. TABLE IN EASY REACH. SIDE RAILS UP TIMES 2. WILL CONTINUE TO MONITOR CLOSELY FOR SAFETY.
[2022-12-09 20:01] VITALS: BP 152/77
[2022-12-09] MEDS: POLYETHYLENE GLYCOL 3350 17 GM POWD.PACK PO SCH (21:58)
[2022-12-09] MEDS: ARIPIPRAZOLE 5 MG TABLET PO SCH (21:58)
[2022-12-10] MEDS: METOCLOPRAMIDE HCL 10 MG TABLET PO SCH ×4 (06:21→23:21)
[2022-12-10] MEDS: BLOOD SUGAR DIAGNOSTIC 1 EACH STRIP IN SCH ×4 (06:51→21:16)
[2022-12-10] MEDS: INSULIN REGULAR, HUMAN 100 UNIT/ML 3 ML VIAL SQ PRN ×3 (06:52→21:20)
--- NOTE | 2022-12-10 07:05 | NUR ---
RN NOTE LEFT PATIENT AWAKE, AMBULATING IN ROOM. PT A/O X 2, UPPER SORBIAN SPEAKING, ABLE TO MAKE NEEDS KNOWN. NO SOB, NO RESPIRATORY DISTRESS NOTED. DENIES SI/HI. PT IS AMBULATORY. PT'S BS: 117. NO COVERAGE GIVEN. ALL SAFETY MEASURES IN PLACE. BED LOCKED IN THE LOWEST POSITION. TABLE IN EASY REACH. SIDE RAILS UP TIMES 2. WILL ENDORSE PT TO AM SHIFT NURSE FOR MARY ELLEN.
[2022-12-10 07:10] LABS: BASOPHILS # (AUTO) 0.1 K/uL (0.0-0.2); BASOPHILS % (AUTO) 1.1 % (0.0-2.0); EOSINOPHILS % (AUTO) 1.5 % (0.0-6.0); HEMATOCRIT 31 % (33-45); LYMPHOCYTES # (AUTO) 1.6 K/uL (0.8-4.8); LYMPHOCYTES % (AUTO) 18.2 % (20.0-44.0); MEAN CORPUSCULAR HGB CONC 30 g/dl (31.0-36.0); MEAN CORPUSCULAR VOLUME 69 fL (82-100); MONOCYTES # (AUTO) 0.7 K/uL (0.1-1.30); MONOCYTES % (AUTO) 8.1 % (2.0-12.0); NEUTROPHILS # (AUTO) 6.1 K/uL (1.8-8.9); NEUTROPHILS % (AUTO) 71.1 % (43.0-81.0); PLATELET COUNT (AUTO) 564 K/uL (150-450); RED BLOOD CELL COUNT(AUTO) 4.43 MIL/uL (4.0-5.2); WHITE BLOOD COUNT (AUTO) 8.6 K/uL (4.3-11.0)
[2022-12-10 07:41] LABS: CALCIUM, SERUM 10.6 mg/dL (8.5-10.1); CREATININE 0.6 mg/dL (0.6-1.3); POTASSIUM 3.9 mmol/L (3.5-5.1)
[2022-12-10 08:00] VITALS: BP 157/72
[2022-12-10] MEDS: PSYLLIUM SEED 1 PKT PACKET PO SCH (09:21)
[2022-12-10] MEDS: OXYBUTYNIN CHLORIDE 5 MG TABLET PO SCH (09:21)
[2022-12-10] MEDS: FERROUS SULFATE (325 MG) 325 MG/TAB TABLET PO SCH ×2 (09:21→17:23)
[2022-12-10] MEDS: ATORVASTATIN 40 MG TABLET PO SCH (09:22)
[2022-12-10] MEDS: AMLODIPINE BESYLATE 5 MG TABLET PO SCH (09:22)
[2022-12-10] MEDS: LITHIUM CARBONATE 150 MG CAPSULE PO SCH ×2 (09:22→21:07)
[2022-12-10] MEDS: LINAGLIPTIN 5 MG TABLET PO SCH (09:22)
[2022-12-10] MEDS: ASCORBIC ACID 500 MG TABLET PO SCH (09:23)
[2022-12-10] MEDS: NITROFURANTOIN/MONOHYDRATE MACROCRYSTALS 100 MG CAPSULE PO SCH ×2 (09:23→21:15)
[2022-12-10] MEDS: ASPIRIN 81 MG TAB.CHEW PO SCH (09:23)
[2022-12-10] MEDS: PANTOPRAZOLE 40 MG TABLET.DR PO SCH (09:23)
[2022-12-10] MEDS: GLIMEPIRIDE 1 MG TABLET PO SCH (09:23)
--- NOTE | 2022-12-10 09:47 | NUR ---
DOT Family Contact: DOT contacted pt's son Luke ([phone]) and he requested for a nursing facility for pt. He stated preferably [place], [place] location.
--- NOTE | 2022-12-10 09:48 | NUR ---
SNF Referral: SW sent clinicals to [facility] to rosanna Stacy, ([phone]) for placement. SW sent H & P, progress notes, and medication list.
--- NOTE | 2022-12-10 10:55 | NUR ---
SNF Facility Contact: SW received a call from [facility] to rosanna Stacy, ([phone]) who stated pt is accepted.
--- NOTE | 2022-12-10 11:00 | NUR ---
RN OPENING NOTE PATIENT AWAKE IN BED RESTING, A/O X 2, COOPERATIVE, COMPLIANT WITH MEDICATIONS. NO S/S OF PAIN NOTED AT THIS TIME. ON ROOM AIR, BREATHING EVEN UNLABORED, NO DISTRESS OR SHORTNESS OF BREATH NOTED. IV ACCESS LEFT WRIST #22G INTACT, PATENT AND FLUSHING WELL. PATIENT DENIES SUICIDE IDEATIONS AND HOMICIDAL IDEATIONS AT THIS TIME. FALL AND SAFETY MEASURES IN PLACE, BED ALARM ON, BED IN LOW AND LOCK POSITION, CALL LIGHT AND TABLE WITHIN EASY REACH, SIDE RAILS UP X2. WILL CONTINUE TO MONITOR Q15 MIN. WITH THE HELP OF STAFF TO MAINTAIN SAFETY.
[2022-12-10] MEDS: SOD FERRIC GLUC 125 MG in IV NS 0.9% 100 ML IV SCH (15:08)
[2022-12-10 16:00] VITALS: BP 124/62
[2022-12-10 19:50] VITALS: BP 124/55
[2022-12-10] MEDS: ARIPIPRAZOLE 5 MG TABLET PO SCH (21:07)
[2022-12-10] MEDS: POLYETHYLENE GLYCOL 3350 17 GM POWD.PACK PO SCH (21:08)
[2022-12-11] MEDS: METOCLOPRAMIDE HCL 10 MG TABLET PO SCH ×2 (05:57→11:47)
[2022-12-11] MEDS: BLOOD SUGAR DIAGNOSTIC 1 EACH STRIP IN SCH ×2 (07:43→11:41)
[2022-12-11 08:00] VITALS: BP 156/88
--- NOTE | 2022-12-11 08:00 | NUR ---
RN- NOTES PATIENT REFUSED INSULIN COVERAGE FOR A BLOOD GLUCOSE OF 171. ENCOURAGEMENT AND EDUCATION OF RISKS/BENEFITS EXPLAINED X3, PATIENT CONTINUES TO REFUSE.
--- NOTE | 2022-12-11 08:02 | NUR ---
SW Discharge Note: Patient will be discharged to half-way facility, [facility], located at [address] [place] [address] ([phone]) . Please arrange ambulance transportation at 1PM. nursery worker spoke with Tawanna marte ([phone]), who stated patient will be accepted at the facility today. Patients son Luke ([phone]) is aware and agreeable. Patient is alert and oriented x2 and is unable to plan for self-care. Patient denies any suicidal or homicidal ideation. Patient is aware and agreeable with discharge plans. Patient will continue to follow-up with (Psychiatrist) Dr. Mc [address], [place] [address]; ([phone]) and (C 13 Catapult Operator) Dr. Kerns [address] [facility] [address], [place] [address]; ([phone]). Patient presents with euthymic mood and congruent affect.
[2022-12-11] MEDS: LINAGLIPTIN 5 MG TABLET PO SCH (08:03)
[2022-12-11] MEDS: FERROUS SULFATE (325 MG) 325 MG/TAB TABLET PO SCH (08:03)
[2022-12-11] MEDS: ASPIRIN 81 MG TAB.CHEW PO SCH (08:03)
[2022-12-11 08:04] VITALS: BP 156/88
[2022-12-11] MEDS: OXYBUTYNIN CHLORIDE 5 MG TABLET PO SCH (08:04)
[2022-12-11] MEDS: PSYLLIUM SEED 1 PKT PACKET PO SCH (08:04)
[2022-12-11] MEDS: ACETAMINOPHEN 325 MG TABLET PO PRN (08:04)
[2022-12-11] MEDS: GLIMEPIRIDE 1 MG TABLET PO SCH (08:04)
[2022-12-11] MEDS: ATORVASTATIN 40 MG TABLET PO SCH (08:04)
[2022-12-11] MEDS: AMLODIPINE BESYLATE 5 MG TABLET PO SCH (08:04)
[2022-12-11] MEDS: PANTOPRAZOLE 40 MG TABLET.DR PO SCH (08:05)
[2022-12-11] MEDS: LITHIUM CARBONATE 150 MG CAPSULE PO SCH (08:05)
[2022-12-11] MEDS: ASCORBIC ACID 500 MG TABLET PO SCH (08:27)
[2022-12-11] MEDS: NITROFURANTOIN/MONOHYDRATE MACROCRYSTALS 100 MG CAPSULE PO SCH (08:27)
[2022-12-11] MEDS: INSULIN REGULAR, HUMAN 100 UNIT/ML 3 ML VIAL SQ PRN (11:43)
[2022-12-11] MEDS: SOD FERRIC GLUC 125 MG in IV NS 0.9% 100 ML IV SCH (14:00)
--- NOTE | 2022-12-11 14:35 | NUR ---
RN- NOTES IV FERRLECIT HELD DUE TO PATIENT DISCHARGED AT 1435.
== END 2022-12-11 14:35 | DRG 885 ==
LOC: ER 14:16 → GPS 17:24
PROVIDERS: ADMIT Psychiatry & Neurology Psychiatry; ATTEND Registered Nurse
DX: F31.64 Bipolar disorder, current episode mixed, severe, with psychotic features (principal); R45.851 Suicidal ideations; F41.9 Anxiety disorder, unspecified; Z79.82 Long term (current) use of aspirin; Z79.84 Long term (current) use of oral hypoglycemic drugs; Z79.899 Other long term (current) drug therapy; E11.9 Type 2 diabetes mellitus without complications; E78.5 Hyperlipidemia, unspecified; D50.9 Iron deficiency anemia, unspecified; D72.829 Elevated white blood cell count, unspecified; E87.6 Hypokalemia; I10 Essential (primary) hypertension; K59.00 Constipation, unspecified; D75.839 Thrombocytosis, unspecified; E83.52 Hypercalcemia; R41.9 Unspecified symptoms and signs involving cognitive functions and awareness; R63.4 Abnormal weight loss; Z68.25 Body mass index [BMI] 25.0-25.9, adult
CPT/HCPCS: 36415; 70450-TC; 71045-TC; 74018; 80048-TC; 80053-TC; 80061-TC; 80076-TC; 81001; 82272-TC; 82306; 82607-TC; 82728-TC; 82784; 82962-TC; 83540-TC; 83735-TC; 83921; 83970; 84075-TC; 84155; 84165; 84443-TC; 85025-TC; 86140-TC; 86225; 86235; 86334; 86431-TC; 87081-TC; 97116-TC; 97530-TC; A4223; C9803; G0480; J1815; J2916; J7030; J7050; J8597

== ENCOUNTER 2025-08-12 16:03 | Inpatient (IN) | payer OTHER ==
[~2025-08-12] VITALS: Ht 157.5 cm; Wt 68.9 kg
[~2025-08-12 16:03] MED LIST changes: +LINA5TAB PO; +LITH300C2 PO; +LORA-258 PO; +OLAN20TA3 PO; -SITA100T PO
--- NOTE | 2025-08-12 16:30 | NUR ---
voluntary psych admission for depression
--- NOTE | 2025-08-12 16:35 | NUR ---
at bedside for eval
--- NOTE | 2025-08-12 17:15 | NUR ---
resting comfortably, no signs and symptoms of distress. vss
[2025-08-12 17:26] LABS: PLATELET COUNT (AUTO) 297 K/uL (150-450); RED BLOOD CELL COUNT(AUTO) 4.50 MIL/uL (4.0-5.2); RED CELL DISTRIBUTION WIDTH 13.3 % (11.5-15.0); WHITE BLOOD COUNT (AUTO) 9.8 K/uL (4.3-11.0)
[2025-08-12 17:33] LABS: CALCIUM, SERUM 10.1 mg/dL (8.5-10.1); CREATININE 0.8 mg/dL (0.6-1.3); SODIUM SERUM 143 mmol/L (136-145); UREA NITROGEN, BLOOD 15 mg/dL (7-18)
[2025-08-12 17:37] LABS: ALCOHOL, BLOOD < 3 mg/dL (0-10); ASPARTATE AMINOTRANSFERASE 18 U/L (15-37); TOTAL PROTEIN, SERUM 7.5 g/dL (6.4-8.2)
[2025-08-12] MEDS ORDERED: IRON PO (17:41)
[2025-08-12] MEDS ORDERED: QUET50TA PO (17:41)
[2025-08-12] MEDS ORDERED: INSU100I30 SQ (17:41)
[2025-08-12] MEDS ORDERED: LISI20TA30 PO (17:41)
[2025-08-12] MEDS ORDERED: ARIP20TA20 PO (17:41)
[2025-08-12 18:33] LABS: AMPHETAMINE, URINE NEGATIVE (NEGATIVE); BARBITURATE, URINE NEGATIVE (NEGATIVE); BENZODIAZEPINE, URINE NEGATIVE (NEGATIVE); CANNABINOID, URINE NEGATIVE (NEGATIVE); COCCAINE, URINE NEGATIVE (NEGATIVE); OPIATE, URINE NEGATIVE (NEGATIVE)
[2025-08-12 18:51] LABS: APPEARANCE,URINE CLEAR (CLEAR); BLOOD, URINE NEGATIVE Ery/uL (NEGATIVE); LEUKOCYTE ESTERASE ,URINE NEGATIVE (NEGATIVE); NITRITE, URINE NEGATIVE (NEGATIVE); UGLUCOSE NEGATIVE (NEGATIVE)
--- NOTE | 2025-08-12 19:32 | NUR ---
CALLED CRISIS TEAM FOR PSYCH EVALUATION. SPOKE W/ BELLA SYLVESTER LCSW PT WILL BE SIGNING IN VOLUNTARY TO OUR GPS UNIT PER BELLA
--- NOTE | 2025-08-12 20:35 | NUR ---
GPS 219-2
--- NOTE | 2025-08-12 21:30 | NUR ---
REPORT GIVEN TO GPS
--- NOTE | 2025-08-12 21:45 | NUR ---
GPS RN ADMITTING NOTES ADMITTED A 70-Y/O FEMALE, FROM [facility], [facility], CAME TO ER FROM HOME WITH AND SON, ADMITTED ON A VOLUNTARY STATUS. UPON FACE TO FACE EVALUATION, PATIENT IS ALERT AND ORIENTED X3 AND COOPERATIVE. PATIENT APPEARS TO BE DEPRESSED AND ANXIOUS. PATIENT DENIES SI/HI/AH/VH AT THIS TIME. PT REPORTS INSOMNIA X 3 WEEKS. PT HAS HX OF DEPRESSION, ANXIETY, INSOMNIA, HTN, HLD, DM2, UTI, SCIATICA, BIPOLAR, SCHIZOPHRENIA. VERBALIZATION OF FEELINGS ENCOURAGED. PATIENT'S BELONGINGS WERE CHECKED AND KEPT IN THE CONTRABAND LOCKER. SKIN ASSESSMENT DONE; SKIN INTACT. BOTH MDs, (DR. MONTENEGRO/SELENA SIMON) HAVE BEEN INFORMED OF THE PT'S ADMISSION. OFFERED FLU AND PNEUMONIA VACCINE HOWEVER PT. REFUSED. DESPITE OF HEALTH TEACHING PROVIDED. PT REFUSED ADMISSION ACCU-CHECK REPORTING "I DON'T NEED IT". PT WAS GIVEN PT'S RIGHTS HANDBOOK. ENVIRONMENTAL SAFETY CHECK PERFORMED. SAFETY PRECAUTIONS IN PLACE. BED IN LOCKED POSITION. PLAN OF CARE ONGOING.
[2025-08-12] MEDS ORDERED: MAG HYDROX/AL HYDROX/SIMETH 30 ML UDC PO PRN (22:00)
[2025-08-12] MEDS ORDERED: LORAZEPAM 0.5 MG TABLET PO PRN ×2 (22:00)
[2025-08-12] MEDS ORDERED: ZOLPIDEM TARTRATE 5 MG TABLET PO PRN (22:00)
[2025-08-12] MEDS: BLOOD SUGAR DIAGNOSTIC 1 EACH STRIP IN ONE (22:17)
[2025-08-12] MEDS: ZOLPIDEM TARTRATE 5 MG TABLET PO PRN (22:46)
--- NOTE | 2025-08-12 22:46 | NUR ---
PRN AMBIEN: PT REPORTS DIFFICULTY FALLING ASLEEP, ASKING FOR SLEEPING MEDICATION. PRN AMBIEN GIVEN PER PT REQUEST. REASSESS FOR EFFECTIVENESS.
[2025-08-12 22:56] VITALS: BP 155/91; TEMP 97.6; O2SAT 96
[2025-08-13] MEDS ORDERED: DEXTROSE 50%-WATER 50 ML DISP.SYRIN IV PRN
[2025-08-13] MEDS: BLOOD SUGAR DIAGNOSTIC 1 EACH STRIP IN SCH (06:38)
--- NOTE | 2025-08-13 06:52 | NUR ---
NEXT-OF-KIN NOTIFIED: CALLED PT'S SON, JEAN-PAUL PETERSON, AND LEFT A VOICE MAIL TO INFORM OF PT'S ADMISSION. UNIT PHONE NUMBER LEFT FOR SON TO CALL WITH QUESTIONS OR TO SPEAK WITH PATIENT.
[2025-08-13 08:09] VITALS: BP 156/78; TEMP 97.8; O2SAT 98
[2025-08-13 08:36] LABS: ASPARTATE AMINOTRANSFERASE 19.0 U/L (15-37); CALCIUM, SERUM 10.0 mg/dL (8.5-10.1); CREATININE 0.6 mg/dL (0.6-1.3); SODIUM SERUM 143.0 mmol/L (136-145); TOTAL PROTEIN, SERUM 7.1 g/dL (6.4-8.2); UREA NITROGEN, BLOOD 17.0 mg/dL (7-18)
[2025-08-13] MEDS: LINAGLIPTIN 5 MG TABLET PO SCH (08:38)
[2025-08-13] MEDS: FERROUS SULFATE (325 MG) 325 MG/TAB TABLET PO SCH (08:38)
[2025-08-13] MEDS: LISINOPRIL (20MG) 20 MG TABLET PO SCH (08:39)
[2025-08-13] MEDS: ATORVASTATIN 40 MG TABLET PO SCH (08:39)
[2025-08-13 08:42] LABS: LDL 55 mg/dL (0-99)
[2025-08-13] MEDS ORDERED: INSULIN GLARGINE,BASAGLAR 100 UNIT/ML INSULN.PEN SQ SCH (09:00)
[2025-08-13] MEDS: MAGNESIUM HYDROXIDE 30 ML UDC PO PRN (09:52)
[2025-08-13] MEDS: LITHIUM CARBONATE (300 MG CAP) 300 MG CAPSULE PO SCH (10:15)
[2025-08-13] MEDS: INSULIN REGULAR, HUMAN 100 UNIT/ML 3 ML VIAL SQ PRN (11:31)
[2025-08-13] MEDS: INSULIN GLARGINE, 100 UNIT/ML CARTRIDGE SQ SCH (12:00)
[2025-08-13 16:12] VITALS: BP 137/57; TEMP 97.8; O2SAT 96
[2025-08-13] MEDS: ACETAMINOPHEN 325 MG TABLET PO PRN (17:54)
--- NOTE | 2025-08-13 19:30 | NUR ---
GPS RN ADMITTING NOTES ADMITTED A 81-Y/O MALE, FROM [facility], CAME TO ER FROM [facility]. PT ON 5150 HOLD FOR DANGER TO OTHERS AND GRAVELY DISABLED. PER HOLD "BIB EMS FROM LIVING FACILITY FOR AGITATION AND AGGRESSIVE BEHAVIOR. PATIENT HAVING BOUTS OF AGITATION AND AGGRESSIVE BEHAVIOR AT LIVING FACILITY, NON-COOPERATIVE WITH CARE. VERBALLY ABUSIVE W/ ER STAFF". UPON FACE TO FACE EVALUATION, PATIENT IS ALERT AND ORIENTED X2, CONFUSED, PARANOID, IRRITABLE, AGGRESSIVE, UNCOOPERATIVE, ELATED, LABILE, RESTLESS, VERBALLY ABUSIVE AND SEXUALLY INAPPROPRIATE. PATIENT DENIES SI/HI/AH/VH AT THIS TIME. PT HAS HX OF PARKINSON'S DISEASE, MAJOR DEPRESSIVE DISORDER, HTN, BPH, SCHIZOPHRENIA, ALZHEIMER'S, CKD, ATRIAL FIBRILLATION, MUSCLE WEAKNESS. VERBALIZATION OF FEELINGS ENCOURAGED. PATIENT'S BELONGINGS WERE CHECKED AND NO CONTRABANDS. PT REFUSED ADMISSION SKIN ASSESSMENT AND ACCU CHECK X 3. BOTH PROVIDERS, (DR. MONTENEGRO/INDUSTRIAL ORGANIZATION MANAGER [facility]) HAVE BEEN INFORMED OF THE PT'S ADMISSION. OFFERED FLU AND PNEUMONIA VACCINE HOWEVER PT. REFUSED. DESPITE OF HEALTH TEACHING PROVIDED. PT WAS GIVEN PT'S RIGHTS HANDBOOK AND HOLD ADVISEMENT. ENVIRONMENTAL SAFETY CHECK PERFORMED. SAFETY PRECAUTIONS IN PLACE. BED IN LOCKED POSITION. Q15 CHECKS ONGOING FOR SAFETY. Addendum: 08/13/25 at 2104 by AZAM MAYS RN THIS NOTE: WRONG PATIENT DOCUMENTATION, PLEASE DISREGARD
--- NOTE | 2025-08-13 19:53 | NUR ---
RN NOTES: RECEIVED PATIENT RESTING IN BED WITH HER EYES OPEN. UPON FACE TO FACE ASSESSMENT, PT ACKNOWLEDGES NURSE BUT IS PLEASANT. PATIENT IS A/O X3, THAI-SPEAKING, RESTLESS, AND WITHDRAWN AT THIS TIME. PT ASKING FOR HER MEDICATIONS; ENSURED PT SHE WILL RECEIVE HER MEDICATION AT SCHEDULED TIME. PT VERBALIZED UNDERSTANDING. PATIENT BREATHING WNL ON ROOM AIR. SAFETY MEASURES IN HER ROOM ARE IN PLACE, BED LOCKED IN LOWEST POSITION, BEDSIDE RAILS ARE UP X2, BED ALARM IS ON AND TRAY TABLE IS WITHIN EASY REACH. Q15 CHECKS ONGOING FOR SAFETY.
[2025-08-13 21:02] VITALS: BP 144/69; TEMP 98; O2SAT 97
[2025-08-13] MEDS: TRAZODONE 50 MG TABLET PO SCH (21:28)
[2025-08-14 08:00] VITALS: BP 170/76; TEMP 98.2; O2SAT 95
[2025-08-14] MEDS: ARIPIPRAZOLE 5 MG TABLET PO SCH (08:11)
--- NOTE | 2025-08-14 08:11 | NUR ---
RN NOTE PATIENT NOTED TO HAVE ELEVATED BLOOD PRESSURE, 170/76 WITH HR AT 100. LINDSEY HOBBS DNP MADE AWARE OF BLOOD PRESSURE AND UPCOMING LISINOPRIL DUE. STATED TO ADMINISTER DUE MEDICATION AND RECHECK IN 1 HOUR. NOTED AND CARRIED OUT.
[2025-08-14 09:15] VITALS: BP 152/72; TEMP 98.1; O2SAT 95
--- NOTE | 2025-08-14 09:15 | NUR ---
RN NOTE BLOOD PRESSURE RECHECKED AND IS AT 152/72. LINDSEY HOBBS DNP MADE AWARE HE WAS ROUNDING IN THE UNIT, STATES TO CONTINUE MONITORING THE PATIENT AND NO NEW ORDERS AT THIS TIME. PATIENT REMAINS STABLE, NO VERBALIZATION OF DISCOMFORT, NOT IN ANY DISTRESS. WILL CONTINUE ONGOING PLAN OF CARE.
--- NOTE | 2025-08-14 12:02 | NUR ---
DOT Clinical Note: Patient currently a voluntary pt. Patient currently at home located at [address] [place] [address]; ([phone]). gas plant worker will contact patient's son Luke ([phone]) to discuss treatment and discharge plan.
--- NOTE | 2025-08-14 12:02 | NUR ---
SW Initial Discharge Note: Patient currently at home located at [address] [place] [address]; ([phone]). canvas worker will contact patient's son Luke ([phone]) to discuss treatment and discharge plan. canvas worker will work with the MD, family, and pt to help coordinate appropriate discharge.
--- NOTE | 2025-08-14 12:03 | NUR ---
Treatment Plan: SW discussed treatment plan but pt appeared to be distracted and preoccupied.
[2025-08-14 16:00] VITALS: BP 146/68; TEMP 97.9; O2SAT 98
--- NOTE | 2025-08-14 16:00 | NUR ---
DOT Family Contact: DOT contacted pt's son Luke ([phone]) and discussed treatment and discharge plan. He stated he would want pt back home when stable.
[2025-08-14 20:30] VITALS: BP 132/74; TEMP 97.9; O2SAT 98
[2025-08-15 08:00] VITALS: BP_SYST 109; BP_SYST 144; BP_DIAS 66; BP_DIAS 85; TEMP 97.7; TEMP 97.8; O2SAT 96; O2SAT 97
--- NOTE | 2025-08-15 09:09 | NUR ---
UR Note: Per intake, pt's insurance is [employer] and requires clinicals to be faxed to ([phone]). SW will fax clinicals and intake will follow up tomorrow 08/16. SW faxed clinicals. Tracking Number [id number]
--- NOTE | 2025-08-15 09:15 | NUR ---
RN NOTE PATIENT AWAKE ON BED. A/O X3, CALM AND COOPERATIVE, PRIMARILY SAO TOMEAN SPEAKING. PATIENT KEEPS TO SELF. HAD ADEQUATE SLEEP. ATE BREAKFAST WITHOUT COMPLICATIONS. COMPLIANT WITH ALL MEDICATIONS. ABLE TO AMBULATE WITH FWW. PLAN OF CARE ONGOING.
--- NOTE | 2025-08-15 12:30 | NUR ---
RN NOTE PATIENT C/O OF HAVING A HEADACHE. ADMINISTERED PRN TYLENOL 650 MG PO. WILL REASSESS PAIN LEVEL IN ONE HOUR PER HOSPITAL PROTOCOL.
[2025-08-15 16:00] VITALS: BP 102/60; TEMP 97.7; O2SAT 96
--- NOTE | 2025-08-15 18:35 | NUR ---
RN NOTE PATIENT C/O OF HAVING A HEADACHE. ADMINISTERED PRN TYLENOL 650 MG PO. WILL REASSESS PAIN LEVEL IN ONE HOUR PER HOSPITAL PROTOCOL.
[2025-08-15 20:56] VITALS: BP 152/68; TEMP 98.4; O2SAT 98
[2025-08-16 08:00] VITALS: BP 163/80; TEMP 98.4; O2SAT 100
--- NOTE | 2025-08-16 12:07 | NUR ---
UR Note: Per intake, pt's insurance is [employer] and requires clinicals to be faxed to ([phone]). SW will fax clinicals and intake will follow up tomorrow 08/16. SW faxed clinicals. SW faxed clinicals today 08/16/2025. Tracking Number [id number]
[2025-08-16] MEDS: GABAPENTIN 100 MG CAPSULE PO SCH (12:41)
--- NOTE | 2025-08-16 13:00 | NUR ---
NURSE NOTE: PT RESTING IN BED. A/O X3, CZECH-SPEAKING, RESTLESS- AMB IN HALLWAY WITH WALKER, WITHDRAWN, ISOLATES IN ROOM, ATTN SEEKING, UNMOTIVATED, PT STATED THAT SHE IS FEELING WEAK- DR MONTENEGRO NOTIFIED, MED COMPLIANT. PT AMB WITH A WALKER, SAFETY PRECAUTIONS IN PLACE. PT IN STABLE COND AT THIS TIME. WILL CONT TO MONITOR FOR SAFETY AND BEHAVIOR. Addendum: 08/16/25 at 1819 by DESIRAE THOMPSON LVN ATTENTION SEEKING
--- NOTE | 2025-08-16 14:48 | NUR ---
Pharmacy: [facility] ([phone])
--- NOTE | 2025-08-16 14:48 | NUR ---
DOT Coordination of Care: Patient will follow up with Psychiatrist, Dr. Villavicencio located at [address] [place] [id number]; ([phone]) on September 01 2:30PM.
--- NOTE | 2025-08-16 14:52 | NUR ---
DOT EARLY DISCHARGE ENTRY FOR 08/17/2025: Patient will return back home located at [address], [place] [address]; ([phone]). Son Luke ([phone]) will bead picker pt at 11AM. Patient is alert and oriented x2. Patient denies suicidal and homicidal ideation. Patient denies visual and auditory hallucinations. Patient will follow up with Psychiatrist, Dr. Vlilavicencio located at [address], [place] [address]; ([phone]) on September 01 at 2:30PM. Patient referred to [facility] for primary doctor located at [address], [address], [place] [address] ([phone]).
[2025-08-16 16:00] VITALS: BP 137/68; TEMP 97.5; O2SAT 97
--- NOTE | 2025-08-16 19:35 | NUR ---
RN NOTES: RECEIVED PATIENT WALKING IN THE HALLWAY WITH FAMILY MEMBERS; AND SON. UPON FACE TO FACE ASSESSMENT, PT ACKNOWLEDGES NURSE AND IS PLEASANT. PATIENT IS A/O X3, TAJIK-SPEAKING, RESTLESS, WITHDRAWN BUT COOPERATIVE AT THIS TIME. PT SEEMS HOPEFUL REGARDING DISCHARGING TOMORROW AND SPENDING THANKSGIVING WITH FAMILY. PATIENT BREATHING WNL ON ROOM AIR. SAFETY MEASURES IN HER ROOM ARE IN PLACE, BED LOCKED IN LOWEST POSITION, BEDSIDE RAILS ARE UP X2, BED ALARM IS ON AND TRAY TABLE IS WITHIN EASY REACH. Q15 CHECKS ONGOING FOR SAFETY.
[2025-08-16 21:11] VITALS: BP 123/76; TEMP 98.3; O2SAT 100
[2025-08-17 08:00] VITALS: BP 126/69; TEMP 99; O2SAT 97
[2025-08-17 08:09] VITALS: BP 126/69
--- NOTE | 2025-08-17 12:35 | NUR ---
RN-DISCHARGE NOTES PATIENT HAD A DISCHARGE ORDER FROM DR. MONTENEGRO ( PSYCHIATRIST ) ,JOSHUA HOBBS ( RETAIL GENERAL MANAGER ) MEDICALLY CLEARED FOR DISCHARGE. ALL MEDICATIONS WAS SENT VIA E-SCRIPT. PATIENT IS A/OX2-3 CALM,NO ACUTE DISTRESS NOTED. PATIENT DID NOT VERBALIZE SI/HI,DENIES VISUAL/AUDITORY HALLUCINATION DURING FACE TO FACE ASSESSMENT.INSTRUCTED PATIENT TO FOLLOW UP WITH THE PSYCHIATRIST AND PCP IN A WEEK OR NEEDED ,[id number] OR GO TO THE NEAREST ER FACILITY IN CASE OF EMERGENCY.PATIENT WAS PROTECTION SPECIALIST BY SON JEAN-PAUL AND PATIENT'S IN THE UNIT. PATIENT WAS WHEELED DOWN BY THE [employer] NATURALIST STAFF TO THE LOBBY FOR SAFETY. PATIENT LEFT THE UNIT IN STABLE CONDITION WITH ALL BELONGINGS.VITAL SIGNS: BP 120/62,HR 80,RESP 18,TEMP. 98.2 AND O2 SAT 97%RA.
[2025-08-25] MEDS ORDERED: SENN-175 PO (11:29)
[2025-08-25] MEDS ORDERED: NITR100C15 PO (11:29)
[2025-08-25] MEDS ORDERED: AMLO-212 PO (11:29)
[2025-08-25] MEDS ORDERED: PANT40TA49 PO (11:29)
== END 2025-08-17 12:40 | disposition home or self-care (01) | DRG 885 ==
LOC: ER 16:18 → GPS 21:07
PROVIDERS: ADMIT Psychiatry & Neurology Psychiatry; ATTEND Nurse Practitioner Acute Care
DX: F31.5 Bipolar disorder, current episode depressed, severe, with psychotic features (principal); D63.8 Anemia in other chronic diseases classified elsewhere; N39.0 Urinary tract infection, site not specified; E11.9 Type 2 diabetes mellitus without complications; I10 Essential (primary) hypertension; E66.9 Obesity, unspecified; F39 Unspecified mood [affective] disorder; R45.851 Suicidal ideations; E78.5 Hyperlipidemia, unspecified; Z79.899 Other long term (current) drug therapy; Z68.27 Body mass index [BMI] 27.0-27.9, adult; F41.9 Anxiety disorder, unspecified; G47.00 Insomnia, unspecified; Z79.4 Long term (current) use of insulin; Z79.84 Long term (current) use of oral hypoglycemic drugs; Z87.440 Personal history of urinary (tract) infections; M54.32 Sciatica, left side; M54.31 Sciatica, right side
CPT/HCPCS: 36415; 80048-TC; 80053-TC; 80061-TC; 80076-TC; 80178-TC; 82962-TC; 84439-TC; 84443-TC; 84481; 85025-TC; 87081-TC; 97110-TC; 97116-TC; 97530-TC; G0480; J1815

== ENCOUNTER 2025-08-20 09:14 | Inpatient (IN) | payer MEDICARE, OTHER ==
[~2025-08-20] VITALS: Ht 160 cm; Wt 68.9 kg
[~2025-08-20 09:14] MED LIST changes: -AMLO-212 PO; +ARIP20TA20 PO; -ASPI-1169 PO; -GLIM1TAB18 PO; +INSU100I30 SQ; +IRON PO; +LISI20TA30 PO; -LORA-258 PO; -OLAN20TA3 PO; -OXYB5TAB16 PO; -PANT40TA2 PO; +QUET50TA PO
[2025-08-20 10:08] LABS: PLATELET COUNT (AUTO) 315 K/uL (150-450); RED BLOOD CELL COUNT(AUTO) 4.44 MIL/uL (4.0-5.2); RED CELL DISTRIBUTION WIDTH 13.4 % (11.5-15.0); WHITE BLOOD COUNT (AUTO) 10.7 K/uL (4.3-11.0)
[2025-08-20 10:14] LABS: CALCIUM, SERUM 10.4 mg/dL (8.5-10.1); CREATININE 0.8 mg/dL (0.6-1.3); SODIUM SERUM 134 mmol/L (136-145); UREA NITROGEN, BLOOD 20 mg/dL (7-18)
[2025-08-20 10:20] LABS: ALCOHOL, BLOOD < 3 mg/dL (0-10); ASPARTATE AMINOTRANSFERASE 26 U/L (15-37); TOTAL PROTEIN, SERUM 7.1 g/dL (6.4-8.2)
[2025-08-20 10:58] LABS: APPEARANCE,URINE CLEAR (CLEAR); BLOOD, URINE NEGATIVE Ery/uL (NEGATIVE); LEUKOCYTE ESTERASE ,URINE 1+ (NEGATIVE); NITRITE, URINE NEGATIVE (NEGATIVE); UGLUCOSE NEGATIVE (NEGATIVE)
[2025-08-20 11:04] LABS: ADD URINE CULTURE YES
[2025-08-20 11:22] LABS: AMPHETAMINE, URINE NEGATIVE (NEGATIVE); BARBITURATE, URINE NEGATIVE (NEGATIVE); BENZODIAZEPINE, URINE NEGATIVE (NEGATIVE); CANNABINOID, URINE NEGATIVE (NEGATIVE); COCCAINE, URINE NEGATIVE (NEGATIVE); OPIATE, URINE NEGATIVE (NEGATIVE)
[2025-08-20] MEDS: CEFTRIAXONE 1GM BAG (ER ONLY) 1 GM/50 ML PIGGYBACK IV ONE (11:55)
[2025-08-20] MEDS ORDERED: PANT40TA49 MT (15:34)
[2025-08-20] MEDS ORDERED: TRAZ-182 PO (15:34)
[2025-08-20] MEDS ORDERED: GABA-532 PO (15:34)
[2025-08-20] MEDS ORDERED: INSU100V7 SQ (15:34)
[2025-08-20] MEDS ORDERED: LORAZEPAM 1 MG TABLET PO PRN (20:30)
[2025-08-20] MEDS ORDERED: MAGNESIUM HYDROXIDE 30 ML UDC PO PRN (20:30)
[2025-08-20] MEDS ORDERED: MAG HYDROX/AL HYDROX/SIMETH 30 ML UDC PO PRN (20:30)
[2025-08-20] MEDS ORDERED: ZOLPIDEM TARTRATE 5 MG TABLET PO PRN (20:30)
[2025-08-20] MEDS: BLOOD SUGAR DIAGNOSTIC 1 EACH STRIP IN ONE (21:02)
[2025-08-20 21:08] VITALS: BP 157/75; TEMP 97.7; O2SAT 95
[2025-08-21] MEDS: ZOLPIDEM TARTRATE 5 MG TABLET PO PRN (00:21)
[2025-08-21] MEDS: AMLODIPINE BESYLATE 5 MG TABLET PO SCH (00:22)
[2025-08-21] MEDS: PANTOPRAZOLE 40 MG TABLET.DR PO SCH (07:49)
[2025-08-21 07:55] VITALS: BP 157/77; TEMP 99.3; O2SAT 96
[2025-08-21] MEDS: GABAPENTIN 100 MG CAPSULE PO SCH (08:18)
[2025-08-21] MEDS: LINAGLIPTIN 5 MG TABLET PO SCH (08:18)
[2025-08-21 08:33] LABS: ASPARTATE AMINOTRANSFERASE 21.0 U/L (15-37); CALCIUM, SERUM 10.3 mg/dL (8.5-10.1); CREATININE 0.8 mg/dL (0.6-1.3); SODIUM SERUM 138.0 mmol/L (136-145); TOTAL PROTEIN, SERUM 7.6 g/dL (6.4-8.2); UREA NITROGEN, BLOOD 16.0 mg/dL (7-18)
[2025-08-21 08:36] LABS: LDL 53 mg/dL (0-99)
[2025-08-21] MEDS: NITROFURANTOIN/MONOHYDRATE MACROCRYSTALS 100 MG CAPSULE PO SCH (09:07)
[2025-08-21] MEDS: OLANZAPINE 2.5 MG TABLET PO SCH (10:36)
[2025-08-21] MEDS: LITHIUM CARBONATE (300 MG CAP) 300 MG CAPSULE PO SCH (10:36)
[2025-08-21] MEDS ORDERED: LORAZEPAM 0.5 MG TABLET PO PRN (11:00)
[2025-08-21 15:50] VITALS: BP 134/68; TEMP 98.2; O2SAT 97
[2025-08-21] MEDS: DOCUSATE SODIUM 100 MG CAPSULE PO SCH (16:19)
[2025-08-21 20:13] VITALS: BP 158/72; TEMP 98.3; O2SAT 97
[2025-08-21] MEDS: SENNOSIDES 8.6 MG TABLET PO SCH (21:08)
[2025-08-21 22:00] VITALS: O2SAT 98
[2025-08-21] MEDS: ALBUTEROL FS 2.5 MG/0.5 ML VIAL.NEB NEB PRN (22:00)
[2025-08-21] MEDS ORDERED: GUAIFENESIN/D-METHORPHAN HB 5 ML UDC PO PRN (22:00)
[2025-08-21 22:15] VITALS: O2SAT 100
[2025-08-21 22:33] LABS: CREATININE 0.7 mg/dL (0.6-1.3)
[2025-08-22 07:49] LABS: PLATELET COUNT (AUTO) 364 K/uL (150-450); RED BLOOD CELL COUNT(AUTO) 4.61 MIL/uL (4.0-5.2); RED CELL DISTRIBUTION WIDTH 13.4 % (11.5-15.0); WHITE BLOOD COUNT (AUTO) 9.3 K/uL (4.3-11.0)
[2025-08-22 08:00] VITALS: BP 152/84; TEMP 98.2; O2SAT 96
[2025-08-22] MEDS: OLANZAPINE 2.5 MG TABLET PO SCH (16:21)
[2025-08-22 16:29] VITALS: BP 117/66; TEMP 97.8; O2SAT 97
[2025-08-22 20:01] VITALS: BP 138/64; TEMP 97.7; O2SAT 97
[2025-08-23 08:00] VITALS: BP 132/71; TEMP 98.2; O2SAT 100
[2025-08-23] MEDS: VENLAFAXINE XR 75 MG CAP.SR.24H PO SCH (12:30)
[2025-08-23 16:00] VITALS: BP 111/72; TEMP 97.7; O2SAT 98
[2025-08-23 21:01] VITALS: BP 125/59; TEMP 98.4; O2SAT 96
[2025-08-24 07:59] VITALS: BP 138/79; TEMP 97.8; O2SAT 96
[2025-08-24] MEDS: VENLAFAXINE XR 37.5 MG CAP.SR.24H PO SCH (08:26)
[2025-08-24 16:00] VITALS: BP 119/63; TEMP 97.5; O2SAT 96
[2025-08-24 20:00] VITALS: BP 139/61; TEMP 97.7; O2SAT 95
[2025-08-25 08:00] VITALS: BP 149/74; TEMP 97.5; O2SAT 97
[2025-08-25] MEDS ORDERED: SENN-175 PO (11:29)
[2025-08-25] MEDS ORDERED: AMLO-212 PO (11:29)
[2025-08-25] MEDS ORDERED: PANT40TA49 PO (11:29)
[2025-08-25] MEDS ORDERED: NITR100C15 PO (11:29)
[2025-08-25 16:00] VITALS: BP 128/76; TEMP 97.5; O2SAT 96
[2025-08-25] MEDS: ACETAMINOPHEN 325 MG TABLET PO PRN (16:32)
== END 2025-08-25 19:23 | disposition home or self-care (01) | DRG 885 ==
LOC: ER 09:14 → GPS 19:38
PROVIDERS: ADMIT Psychiatry & Neurology Psychiatry; ATTEND Nurse Practitioner Acute Care
DX: F31.5 Bipolar disorder, current episode depressed, severe, with psychotic features (principal); E87.1 Hypo-osmolality and hyponatremia; F29 Unspecified psychosis not due to a substance or known physiological condition; E11.9 Type 2 diabetes mellitus without complications; E78.5 Hyperlipidemia, unspecified; D64.9 Anemia, unspecified; B96.20 Unspecified Escherichia coli [E. coli] as the cause of diseases classified elsewhere; N39.0 Urinary tract infection, site not specified; I10 Essential (primary) hypertension; R45.851 Suicidal ideations; F31.9 Bipolar disorder, unspecified; R79.89 Other specified abnormal findings of blood chemistry; M54.32 Sciatica, left side; M54.31 Sciatica, right side; Z79.4 Long term (current) use of insulin; Z79.84 Long term (current) use of oral hypoglycemic drugs; Z79.899 Other long term (current) drug therapy
CPT/HCPCS: 36415; 70450-TC; 71045-TC; 80048-TC; 80053-TC; 80061-TC; 80076-TC; 80178-TC; 81001; 82565-TC; 82962-TC; 85025-TC; 87086-TC; 87186-TC; 94799-TC; 97110-TC; 97116-TC; 97530-TC; G0480; J0696